=== PATIENT | male | born 1955 | race Caucasian/White ===

== ENCOUNTER 2019-04-27 10:09 | Inpatient (IN) ==
[2019-04-27] MEDS ORDERED: SODIUM CHLORIDE 0.9% 1000ML 1,000 ML IV SCH (11:00)
[2019-04-27 11:02] LABS: Basophils # (auto) 0.02 K/uL (0-0.2); Basophils % (auto) 0.2 %; Eosinophils # (auto) 0.01 K/uL (0-0.5); Eosinophils % (auto) 0.1 %; Hematocrit (blood only) 41.1 % (42-52); Hemoglobin 14.2 g/dL (14.0-18.0); Immature Granulocytes # (auto) 0.02 K/uL (0.00-0.02); Immature Granulocytes % (auto) 0.2 %; Lymphocytes # (auto) 1.35 K/uL (1.2-3.4); Mean Corpuscular Hgb Conc 34.5 g/dL (32-36); Mean Corpuscular Volume 91.3 fL (80-100); Mean Platelet Volume 9.9 fL (7.4-10.4); Monocytes # (auto) 0.76 K/uL (0.11-0.59); Monocytes % (auto) 7.9 %; Neutrophils # (auto) 7.47 K/uL (1.4-6.5); Neutrophils % (auto) 77.6 %; Platelet Count 290 K/uL (130-400); RDW Coefficient of Variation 13.6 % (11.5-14.5); RDW Standard Deviation 45.2 fL (36.4-46.3); White Blood Count 9.63 K/uL (4.8-10.8)
--- NOTE | 2019-04-27 11:16 | XRay Report ---
XR chest 1V portable CLINICAL HISTORY: epigastric pain pain. Nausea. COMPARISON STUDY: No previous studies for comparison. FINDINGS: The bones soft tissues and hemidiaphragms are normal. The cardiomediastinal silhouette is n ormal. The lungs are clear. The pulmonary vasculature is normal. IMPRESSION: Negative chest. The above report was generated using voice recognition software. It may contain grammatical, syntax or spelling errors. Electronically signed by: Cachorro Lentz M.D. 04/27/2019 11:15 AM
[2019-04-27 11:28] LABS: Alanine Aminotransferase 99 U/L (12-78); Albumin Level 3.7 gm/dl (3.4-5.0); Aspartate Aminotransferase 67 U/L (15-37); BUN Creatinine Ratio 10.7 (10-20); Blood Urea Nitrogen 10 mg/dl (7-18); Calcium 9.4 mg/dl (8.5-10.1); Carbon Dioxide 25 mmol/L (21-32); Chloride 102 mmol/L (98-107); Est GFR (African American) 95.8; Est GFR (Non-African American) 82.6; Glucose 105 mg/dl (70-99); Potassium 3.4 mmol/L (3.5-5.1); Sodium 137 mmol/L (136-145)
[2019-04-27 11:32] LABS: Albumin Globulin Ratio 0.8 (0.9-2); Alkaline Phosphatase 332 U/L (45-117); Globulin 4.8 gm/dl (2.5-4.0); Total Protein 8.5 gm/dl (6.4-8.2)
[2019-04-27] MEDS ORDERED: KETOROLAC 30 MG/ML VIAL IV ONE (11:56)
[2019-04-27] MEDS ORDERED: ONDANSETRON INJ 2 MG/ML 2 ML VIAL IV STA (11:56)
[2019-04-27] MEDS ORDERED: IOVERSOL 100ml IV PRN (12:33)
--- NOTE | 2019-04-27 12:42 | CT Scan Report ---
CT abd pelvis IV con only CT DOSE: 466.70 mGy.cm HISTORY: Pain. Nausea. elevated lipase, LFTS-Eval for GB/pancreas dx TECHNIQUE: Multiaxial CT images of the abdomen and pelvis were performed following the use of intrave nous contrast. A dose lowering technique was utilized adhering to the principles of ALARA. COMPARISON STUDY: None. FINDINGS: Lung bases are clear. Prominent biliary ductal system. Distal common bile duct measures up to 1.4 cm. Radiopaque material within the distal common duct suggest choledocholithiasis. Gallbladder soft tissues not appear distended. Spleen is uniform. No distention of the pancreatic caroline t. Potential trace peripancreatic infiltrative change of the pancreatic tail. No evidence for abscess or collection. Kidneys negative for hydronephrosis. 3.8 cm right renal cyst. IMPRESSION: 1. Distended biliary ductal system with findings of distal common bile duct choledocholithiasis. 2. 3.8 cm right renal cyst. 3. Study is otherwise suggestive of potential minimal pancreatic tail pancreatitis. The above report was generated using voice recognition software. It may contain grammatical, syntax or spelling errors. Electronically signed by: Cachorro Lentz M.D. 04/27/2019 12:41 PM
[2019-04-27] MEDS ORDERED: PIPERACILLIN/TAZOBACTAM 4.5 GM/120 ML BAG IV STA (12:52)
[2019-04-27 13:25] LABS: Appearance Urine Clear (Clear); Blood Urine Negative (Negative); Color Urine Dark Yellow; Glucose Urine UA Negative (Negative); Ketones Urine Negative (Negative); Leukocyte Esterase Urine Negative (Negative); Nitrite Urine Negative (Negative); Protein Urine Negative (Negative); Specific Gravity Urine 1.043 (1.000-1.030); Urobilinogen Urine Negative (Negative)
[2019-04-27 13:34] LABS: Bilirubin Urine 3+ (Negative)
[2019-04-27 13:35] LABS: Ictotest Urine Positive (Negative)
--- NOTE | 2019-04-27 13:39 | History & Physical Report ---
Date of Service April 27, 2019 Assessment & Plan (1) Acute gallstone pancreatitis: N.p.o. IV fluids. Parenteral narcotics and antiemetics. GI consultation Present on Admission?: Yes (2) Obstructive jaundice: Due to distal choledocholithiasis. N.p.o. IV Zosyn. GI consultation Present on Admission?: Yes (3) Hypokalemia: IV replacement. Serial labs Present on Admission?: Yes (4) Hepatitis C: Necessary precautions (5) Hypertension: Treated with lisinopril (6) Hyperlipidemia: Hold statin therapy (7) DVT prophylaxis: Lovenox subcu History of Present Illness Chief Complaint: Epigastric discomfort, nausea and vomiting Primary Care Provider: SHELBY Vieira 64-year-old male with 4 to 5 days of epigastric discomfort nausea and vomiting and development of jaundice. His symptoms have steadily grown worse and he was brought to the ED from the custodial center. He is found to have acute gallstone pancreatitis with distal choledocholithiasis causing some obstructive jaundice. Total bilirubin is 8.0. Lipase 14,899. Potassium 3.4. GI consultation has already been requested. He is admitted for further evaluation and treatment. No hematemesis melena or hematochezia. No fever. Allergies Allergy/AdvReac Type Severity Reaction Status Date / Time No Known Allergies Allergy Unverified 04/27/19 12:14 Home Medications Home Medications Medication Instructions Recorded Confirmed Type aspirin 81 mg PO HS 04/27/19 04/27/19 History duloxetine 30 mg PO HS 04/27/19 04/27/19 History ibuprofen 600 mg PO TID 04/27/19 04/27/19 History lisinopril 20 mg PO HS 04/27/19 04/27/19 History lovastatin 20 mg PO HS 04/27/19 04/27/19 History magnesium hydroxide [Milk of 30 ml PO QPM PRN 04/27/19 04/27/19 History Magnesia] mirtazapine 15 mg PO HS 04/27/19 04/27/19 History omeprazole 20 mg PO QAM 04/27/19 04/27/19 History promethazine 25 mg IM Q6H PRN 04/27/19 04/27/19 History Past Med/Surg History Medical History Hepatitis C (Resolved) Family History Other Family history non-contributory Social History Current Living Situation: Other Current Living Situation Comment: Incarcerated Feels Safe at Home: Yes Smoking Status: Former smoker Hx Alcohol Use: No Hx Substance Use: Yes (Former (2003)) substance use type: IV drugs Review of Systems Review of Systems: Constitutional-no fever or chills ENT-no blurred vision, no double vision, no epistaxis, no sore throat Respiratory-no cough, no wheezing, no shortness of breath Cardiac-no palpitations, no chest pain, no syncope GI-epigastric discomfort. Nausea. Vomiting. No hematemesis. No coffee-ground emesis -no urinary retention, no urinary incontinence, no dysuria, no hematuria Musculoskeletal-no joint pain, no muscle tenderness Skin-no bruising, no rashes, no pruritus Neuro-no isolated weakness, no paresthesia, no weakness Psych-no depression, no anxiety Physical Exam 2 Physical Exam: General-alert and oriented x3, no fevers, no chills HEENT-head atraumatic and normocephalic, TMs intact bilaterally, pupils equal and reactive to light, extraocular muscles intact. Mild icterus noted Neck-no lymphadenopathy or thyromegaly, trachea midline Chest-clear to auscultation percussion. No rales wheezing or rhonchi Cardiac-regular rate and rhythm, normal S1 and S2, no murmurs Abdomen-epigastric tenderness. No masses. No rebound or guarding. Bowel sounds are active Extremities-no cyanosis, clubbing, or edema Neuro-cranial nerves II through XII intact, motor and sensory function within normal limits, strength symmetrical 5/5, no focal deficits Psych-normal affect, normal mood Results & Data Vital Signs (Past 12 Hours) Vital Signs Temp Pulse Pulse Resp BP BP Pulse Ox 04/27/19 13:00 58 L 20 184/93 H 96 04/27/19 10:21 36.7 C 70 20 176/99 H 97 Laboratory Results 04/27/19 10:47 04/27/19 10:47 PG Care Time/CCT Total # of Minutes Spent Total Time Spent with Patient: Total time spent is greater than 50% in coordination of care (as documented) at patient's floor/unit and/or counseling patient:
--- NOTE | 2019-04-27 13:55 | Gastrointestinal Consultation ---
Date of Consultation April 27, 2019 Assessment & Plan (1) Choledocholithiasis: ERCP tomorrow for stone extraction. Antibiotics have been started. Will need surgical consult for cholecystectomy, once pancreatitis improves. IV fluids, pain control, anti-emetics. Would keep NPO. Follow labs. (2) Acute gallstone pancreatitis: as above Supervising Physician Co-Signing Physician Notes I have seen and examined the patietn with Carmen Cisneros PA-C whose note reflects our findings and plan. Inmate admitted with abd pain. History and presentation as well as labs and imaging consistent with choledocholithiasis and gallstone pancreatitis. abd tender. No fevers. - Bowel rest - IVF hydration - PRN analgesia and anti-emetics. - ERCP planned for tomorrow for stone extraction. - Will need surgical eval for tyree once he recovers from the acute episode. History of Present Illness Reason for Consultation: Obstructive jaundice with pancreatitis Requesting Physician: Dr Jacob Attending Physician: Dr. Renuka Haskins History of Present Illness 64 year old male with a hx of HTN, hyperlipidemia and Hep C s/p successful treatment, currently an inmate at [facility] participating in a local "boot camp." He reports significant epigastric/LUQ abdominal pain, radiating to the back, with associated n/v, worse post prandially since Saturday of last week. He reports a low grade fever with chills and pruritus as well. He has noted darker urine and young colored stool for the past several days, and mild jaundice. Brought to the ED and found to have a Tbili of 8.0, ALP of 332, AST of 67 and ALT of 99. WBC was normal. Lipase 14,899. CTAP was performed, which showed biliary ductal dilation and a retained stone in the distal CBD. Mild pancreatitis of the pancreatic tail was noted as well. Currently afebrile. NPO. On no blood thinners. Does take 81mg ASA daily. Intermittent Ibuprofen use. Allergies Allergy/AdvReac Type Severity Reaction Status Date / Time No Known Allergies Allergy Unverified 04/27/19 12:14 Home Medications Home Medications Medication Instructions Recorded Confirmed Type aspirin 81 mg PO HS 04/27/19 04/27/19 History duloxetine 30 mg PO HS 04/27/19 04/27/19 History ibuprofen 600 mg PO TID 04/27/19 04/27/19 History lisinopril 20 mg PO HS 04/27/19 04/27/19 History lovastatin 20 mg PO HS 04/27/19 04/27/19 History magnesium hydroxide [Milk of 30 ml PO QPM PRN 04/27/19 04/27/19 History Magnesia] mirtazapine 15 mg PO HS 04/27/19 04/27/19 History omeprazole 20 mg PO QAM 04/27/19 04/27/19 History promethazine 25 mg IM Q6H PRN 04/27/19 04/27/19 History Patient History Medical History Hyperlipidemia (Chronic) Hypertension (Chronic) Hypokalemia (Acute) Obstructive jaundice (Acute) Acute gallstone pancreatitis (Acute) Hepatitis C (Resolved) Family History Other Family history non-contributory Social History Current Living Situation: Other Current Living Situation Comment: Incarcerated Feels Safe at Home: Yes Smoking Status: Former smoker Hx Alcohol Use: No Hx Substance Use: Yes (Former (2003)) substance use type: IV drugs Review of Systems Constitutional: + fever (initially) and + chills (initially); no fatigue and no weight loss Eyes: no eye pain and no worsening vision Ear, Nose, Mouth, Throat: no ear pain, no hearing loss, no nasal congestion and no sore throat Respiratory: no cough, no chest congestion and no wheezing Cardiovascular: no chest pain and no dyspnea Gastrointestinal: as per Subjective / HPI Musculoskeletal: no joint pain Integumentary: + pruritus; no rash Neurologic: no tingling, no numbness and no dizziness Psychiatric: no suicidal ideation and no confusion Endocrine: no cold intolerance and no heat intolerance Hematologic / Lymphatic: no easy bleeding and no easy bruising Allergy / Immunological: no problem reported Physical Exam Constitutional: WD/WN, vitals as above healthy appearing; no acute distress Eyes: +icterus ENMT: external ear and nose normal, oropharynx normal Neck: normal visual inspection Respiratory: normal respiratory effort, lungs clear to auscultation Cardiovascular: Rate/Rhythm: regular rate and regular rhythm Heart Sounds: no murmur Gastrointestinal (Abdomen): Inspection/Auscultation: normal bowel sounds Percussion/Palpation: + abdomen tender (across the upper abdomen) and abdomen soft; no ascites Musculoskeletal: Head/Neck/Chest: normocephalic and head atraumatic Skin: + jaundice (mild) Neurologic: moves all extremities; no focal motor deficits Psychiatric: Orientation: alert and oriented x 3 Results & Data Vital Signs (Past 12 Hours) Vital Signs Temp Pulse Pulse Resp BP BP Pulse Ox 04/27/19 13:00 58 L 20 184/93 H 96 04/27/19 10:21 36.7 C 70 20 176/99 H 97 Laboratory Results - last 24 hr 04/27/19 04/27/19 04/27/19 10:47 10:47 13:15 WBC 9.63 RBC 4.50 L Hgb 14.2 Hct 41.1 L MCV 91.3 MCH 31.6 MCHC 34.5 RDW Std Deviation 45.2 RDW Coeff of Jonas 13.6 Plt Count 290 MPV 9.9 Immature Gran % (Auto) 0.2 Neut % (Auto) 77.6 Lymph % (Auto) 14.0 [place] % (Auto) 7.9 Eos % (Auto) 0.1 Baso % (Auto) 0.2 Immature Gran # (Auto) 0.02 Neut # (Auto) 7.47 H Lymph # (Auto) 1.35 [place] # (Auto) 0.76 H Eos # (Auto) 0.01 Baso # (Auto) 0.02 Sodium 137 Potassium 3.4 L Chloride 102 Carbon Dioxide 25 Anion Gap 10.0 BUN 10 Creatinine 0.96 Est Cr Clr Drug Dosing Not Reportable Est GFR ( Amer) 95.8 Est GFR (Non-Af Amer) 82.6 BUN/Creatinine Ratio 10.7 Glucose 105 H Calcium 9.4 Total Bilirubin 8.0 H AST 67 H ALT 99 H Alkaline Phosphatase 332 H Total Protein 8.5 H Albumin 3.7 Globulin 4.8 H Albumin/Globulin Ratio 0.8 L Lipase 67827 H Urine Color Dark Yellow Urine Appearance Clear Urine pH 6.0 Ur Specific [place] 1.043 H Urine Protein Negative Urine Glucose (UA) Negative Urine Ketones Negative Urine Blood Negative Urine Nitrite Negative Urine Bilirubin 3+ H Urine Urobilinogen Negative Ur Leukocyte Esterase Negative CTAP -= IV contrast: IMPRESSION: 1. Distended biliary ductal system with findings of distal common bile duct choledocholithiasis. 2. 3.8 cm right renal cyst. 3. Study is otherwise suggestive of potential minimal pancreatic tail pancreatitis.
[2019-04-27 15:57] LABS: Prothrombin Time 10.5 Seconds (9.0-12.0)
--- NOTE | 2019-04-27 16:18 | Anesthesiology Consultation ---
Date of Service April 27, 2019 Assessment & Plan (1) Encounter for pre-operative examination: Chart Review Chart Review: Acceptable Risk for Surgery and Patient NOT seen in Pre Admission Testing Consults Requested none medicine is following History Surgery Operation Date: 04/28/19 14:00 Proposed Procedures p Endoscopic Retrograde Cholangiopancreatogram - Castro Love MD Height/Weight Weight: 90.4 kg Allergies Allergy/AdvReac Type Severity Reaction Status Date / Time No Known Allergies Allergy Unverified 04/27/19 12:14 Medications Home Medications Medication Instructions Recorded Confirmed Last Taken aspirin 81 mg PO HS 04/27/19 04/27/19 Unknown duloxetine 30 mg PO HS 04/27/19 04/27/19 04/26/19 ibuprofen 600 mg PO TID 04/27/19 04/27/19 Unknown lisinopril 20 mg PO HS 04/27/19 04/27/19 Unknown lovastatin 20 mg PO HS 04/27/19 04/27/19 Unknown magnesium hydroxide [Milk of 30 ml PO QPM PRN 04/27/19 04/27/19 04/26/19 Magnesia] mirtazapine 15 mg PO HS 04/27/19 04/27/19 04/25/19 omeprazole 20 mg PO QAM 04/27/19 04/27/19 Unknown promethazine 25 mg IM Q6H PRN 04/27/19 04/27/19 Unknown Active Medications Generic Name Dose Route Start Last Admin Trade Name Freq PRN Reason Stop Dose Admin Ioversol 94 ml 04/27/19 12:33 04/27/19 12:33 Optiray 320 100ml IV 05/01/19 12:32 94 ml ONCE PRN Administration Interaction Checking Past Medical History Medical History Hyperlipidemia (Chronic) Hypertension (Chronic) Hypokalemia (Acute) Obstructive jaundice (Acute) Acute gallstone pancreatitis (Acute) Hepatitis C (Resolved) Past Family History Family History Other Family history non-contributory Social History Smoking Status: Former smoker Hx Alcohol Use: No Hx Substance Use: Yes (Former (2003)) substance use type: IV drugs Physical Exam Vital Signs Last Vital Signs Temp 36.7 C 04/27/19 10:21 Pulse 58 L 07/29/19 13:00 Resp 23 04/27/19 16:01 BP 211/113 H 04/27/19 16:01 Pulse Ox 96 04/27/19 16:01 Testing Laboratory Results 04/27/19 10:47 04/27/19 10:47 PT 10.5 Seconds (9.0-12.0) 04/27/19 15:38 INR 1.0 (0.9-1.1) 04/27/19 15:38 Urine Color Dark Yellow 04/27/19 13:15 Urine Appearance Clear (Clear) 04/27/19 13:15 Urine pH 6.0 (4.5-7.5) 04/27/19 13:15 Ur Specific [place] 1.043 (1.000-1.030) H 04/27/19 13:15 Urine Protein Negative (Negative) 04/27/19 13:15 Urine Glucose (UA) Negative (Negative) 04/27/19 13:15 Urine Ketones Negative (Negative) 04/27/19 13:15 Urine Nitrite Negative (Negative) 04/27/19 13:15 Ur Leukocyte Esterase Negative (Negative) 04/27/19 13:15 Electrocardiogram Date: 04/27/19 ectopic atrial vs junctional rhythm rate of 59 Chest X-Ray Date: 04/27/19 XR chest 1V portable CLINICAL HISTORY: epigastric pain pain. Nausea. COMPARISON STUDY: No previous studies for comparison. FINDINGS: The bones soft tissues and hemidiaphragms are normal. The cardiomediastinal silhouette is normal. The lungs are clear. The pulmonary vasculature is normal. IMPRESSION: Negative chest. The above report was generated using voice recognition software. It may contain grammatical, syntax or spelling errors. Electronically signed by: Cachorro Lentz M.D. 04/27/2019 11:15 AM Dictated: 04/27/19 1115 Transcribed: 04/27/19 1115
--- NOTE | 2019-04-27 16:36 | Emergency Department Note ---
Entered by Renuka Cabello acting as a scribe for History of Present Illness General Chief complaint: Abdominal Pain Stated complaint: ABD PAIN, FATIGUE Time Seen by Provider: 04/27/19 10:49 Source: patient History of Present Illness Onset (ago): day(s) 5 Location: abdomen Pain Consistency: + other (persistent) Maximum Pain Intensity: 5 Exacerbated By: + eating Associated symptoms: + denies other symptoms (chest pain, shortness of breath, hematemesis) and + other (vomiting, fever, yellow eyes) The patient is a 64 year old male that is presenting to the Emergency Room with complaints of intermittent abdominal pain that started 5 days ago while the patient was eating. The patient reports that he started vomiting shortly after the onset of the pain. He states that the pain resolved that evening and notes that he did not eat the rest of the day. He states that the same symptoms returned with eating the next day. He reports that he is unable to keep any food down secondary to the pain and vomiting. He denies any hematemesis. He notes that he had a fever. He states that he was informed by the physician at his facility that his eyes were yellow. He denies any chest pain or shortness of breath. He denies any current alcohol or drug use. 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 He denies any excessive exposure to the sun. He reports that he has been incarcerated for the past 21 months. The patient reports that he has a history of hepatitis c that has resolved with treatment. He notes that he had his esophagus stretched in 2016. Home Medications Home Medications Medication Instructions Recorded Confirmed Type aspirin 81 mg PO HS 04/27/19 04/27/19 History duloxetine 30 mg PO HS 04/27/19 04/27/19 History ibuprofen 600 mg PO TID 04/27/19 04/27/19 History lisinopril 20 mg PO HS 04/27/19 04/27/19 History lovastatin 20 mg PO HS 04/27/19 04/27/19 History magnesium hydroxide [Milk of 30 ml PO QPM PRN 04/27/19 04/27/19 History Magnesia] mirtazapine 15 mg PO HS 04/27/19 04/27/19 History omeprazole 20 mg PO QAM 04/27/19 04/27/19 History promethazine 25 mg IM Q6H PRN 04/27/19 04/27/19 History Allergies Allergy/AdvReac Type Severity Reaction Status Date / Time No Known Allergies Allergy Unverified 04/27/19 12:14 Past Med/Surg History Medical History Hyperlipidemia (Chronic) Hypertension (Chronic) Hypokalemia (Acute) Obstructive jaundice (Acute) Acute gallstone pancreatitis (Acute) Hepatitis C (Resolved) Family History Other Family history non-contributory Social History Current Living Situation: Other Current Living Situation Comment: Incarcerated Feels Safe at Home: Yes Smoking Status: Former smoker Hx Alcohol Use: No Hx Substance Use: Yes (Former (2003)) substance use type: IV drugs Review of Systems See HPI for pertinent positives & negatives. and A total of 10 systems reviewed and were otherwise negative Physical Exam Vital Signs Vital Signs - 24 hr 04/27/19 10:21 04/27/19 10:56 04/27/19 13:00 Temperature 36.7 C Temperature Source Oral Sepsis Recent Fever Within 48 Hours No Sepsis Action Taken by Nursing No Action Required Pulse Rate 70 Pulse Rate [Left] 58 L Pulse Rate from SpO2 Sensor Respiratory Rate 20 20 Respiratory Effort / Characteristics Non-Labored Respiratory Depth Normal Blood Pressure 176/99 H Blood Pressure [Right Arm] 184/93 H Blood Pressure Mean 124 Blood Pressure Mean [Right Arm] 123 Pulse Oximetry 97 96 Oxygen Delivery Method Room Air Room Air Room Air 04/27/19 15:09 04/27/19 16:01 Temperature Temperature Source Sepsis Recent Fever Within 48 Hours Sepsis Action Taken by Nursing Pulse Rate Pulse Rate [Left] Pulse Rate from SpO2 Sensor 64 63 Respiratory Rate 24 23 Respiratory Effort / Characteristics Respiratory Depth Blood Pressure 202/91 H 211/113 H Blood Pressure [Right Arm] Blood Pressure Mean 128 145 Blood Pressure Mean [Right Arm] Pulse Oximetry 96 96 Oxygen Delivery Method Room Air Room Air General: Non-ill appearing middle-aged male in no acute distress. HEENT: Normal cephalic atraumatic. Pupils are equal round and reactive to light. Extraocular movements are intact. Oropharynx is pink with moist mucous membranes. No swelling of the mouth lips or tongue. Sclera have icterus. Neck: Supple with a midline trachea. No meningeal signs or stiffness, no JVD or bruits. No Stridor. Chest: Clear to auscultation bilaterally. No wheezes or rhonchi. No increased work of breathing. Heart: regular rate and rhythm. Abdomen: Soft, nondistended without rebound guarding or rigidity. Mildly tender in the epigastric and right upper quadrant. Extremities: No cyanosis clubbing or edema. No calf tenderness or asymmetry Spine/Back. Non tender to palpation. No CVA tenderness Skin: Good turgor without rashes. Neurologic exam: Cranial nerves two through 12 are intact. Motor and sensation are intact and symmetrical throughout. Course 1049:The patient was evaluated in room C11B. A complete history and physical examination was performed. 1256: I discussed the patients case with the PORTFOLIO ADMINISTRATOR for GI, who will evaluate the patient for further management and care. 1306: I discussed the patients case with JACKELINE Wilks, who will evaluate the patient further. 1310: Upon reevaluation, the patient is resting comfortably. I discussed laboratory and radiographic results with the patient. He verbalized agreement of the treatment plan. The patient will be evaluated for further management and care. Consultations Consultation #1: I discussed the patients case with the PORTFOLIO ADMINISTRATOR for GI, who will evaluate the patient for further management and care. Time: 12:56 Consultation #2: I discussed the patients case with JACKELINE Wilks, who will evaluate the patient further. Time: 13:06 Administered Medications Ioversol (Optiray 320 100ml) 94 ml IV ONCE PRN PRN Reason: Interaction Checking Stop: 05/01/19 12:32 Last Admin: 04/27/19 12:33 Dose: 94 ml Documented by: [id number] Discontinued Medications Sodium Chloride (Nss 1000ml) 1,000 mls @ 999 mls/hr IV .Q1H1M CRYSTAL Stop: 04/27/19 12:00 Last Infusion: 04/27/19 12:42 Dose: 0 mls/hr Documented by: [id number] Admin: 04/27/19 11:19 Dose: 999 mls/hr Documented by: [id number] Piperacillin Sod/Tazobactam Sod (Zosyn) 4.5 gm in 120 mls @ 240 mls/hr IV NOW STA Stop: 04/27/19 13:21 Last Infusion: 04/27/19 13:56 Dose: 0 mls/hr Documented by: [id number] Admin: 04/27/19 13:13 Dose: 240 mls/hr Documented by: [id number] Ketorolac Tromethamine (Toradol) 30 mg IV NOW ONE Stop: 04/27/19 11:57 Last Admin: 04/27/19 12:47 Dose: 30 mg Documented by: [id number] Ondansetron HCl (Zofran) 4 mg IV NOW STA Stop: 04/27/19 11:57 Last Admin: 04/27/19 12:47 Dose: 4 mg Documented by: [id number] Medical Decision Making Differential Diagnosis Differential diagnosis: Etiologies such as liver disease, gall bladder disease, dehydration, peptic ulcer disease, esophageal pathologies, electrolyte and metabolic abnormalities as well as others were entertained. Medical Records Attestation: I reviewed the patient's medical records. Home Medications Current Medication List: was personally reviewed by me Laboratory Data Attestation: I reviewed the patient's lab results. Result diagrams: 04/27/19 10:47 04/27/19 10:47 Lab Results 04/27/19 04/27/19 04/27/19 Range/Units 10:47 10:47 10:47 WBC 9.63 (4.8-10.8) K/uL RBC 4.50 L (4.7-6.1) M/uL Hgb 14.2 (14.0-18.0) g/dL Hct 41.1 L (42-52) % MCV 91.3 (80-100) fL MCH 31.6 (25-34) pg MCHC 34.5 (32-36) g/dL RDW Std Deviation 45.2 (36.4-46.3) fL RDW Coeff of Jonas 13.6 (11.5-14.5) % Plt Count 290 (130-400) K/uL MPV 9.9 (7.4-10.4) fL Immature Gran % (Auto) 0.2 % Neut % (Auto) 77.6 % Lymph % (Auto) 14.0 % [place] % (Auto) 7.9 % Eos % (Auto) 0.1 % Baso % (Auto) 0.2 % Immature Gran # (Auto) 0.02 (0.00-0.02) K/uL Neut # (Auto) 7.47 H (1.4-6.5) K/uL Lymph # (Auto) 1.35 (1.2-3.4) K/uL [place] # (Auto) 0.76 H (0.11-0.59) K/uL Eos # (Auto) 0.01 (0-0.5) K/uL Baso # (Auto) 0.02 (0-0.2) K/uL PT Cancelled INR Cancelled Sodium 137 (136-145) mmol/L Potassium 3.4 L (3.5-5.1) mmol/L Chloride 102 (98-107) mmol/L Carbon Dioxide 25 (21-32) mmol/L Anion Gap 10.0 (3-11) BUN 10 (7-18) mg/dl Creatinine 0.96 (0.6-1.4) mg/dl Est Cr Clr Drug Dosing Not Reportable Est GFR ( Amer) 95.8 Est GFR (Non-Af Amer) 82.6 BUN/Creatinine Ratio 10.7 (10-20) Glucose 105 H (70-99) mg/dl Calcium 9.4 (8.5-10.1) mg/dl Total Bilirubin 8.0 H (0.2-1) mg/dl AST 67 H (15-37) U/L ALT 99 H (12-78) U/L Alkaline Phosphatase 332 H (45-117) U/L Total Protein 8.5 H (6.4-8.2) gm/dl Albumin 3.7 (3.4-5.0) gm/dl Globulin 4.8 H (2.5-4.0) gm/dl Albumin/Globulin Ratio 0.8 L (0.9-2) Lipase 28886 H (73-393) U/L Urine Color Urine Appearance (Clear) Urine pH (4.5-7.5) Ur Specific [place] (1.000-1.030) Urine Protein (Negative) Urine Glucose (UA) (Negative) Urine Ketones (Negative) Urine Blood (Negative) Urine Nitrite (Negative) Urine Bilirubin (Negative) Urine Urobilinogen (Negative) Ur Leukocyte Esterase (Negative) 04/27/19 04/27/19 Range/Units 13:15 15:38 WBC (4.8-10.8) K/uL RBC (4.7-6.1) M/uL Hgb (14.0-18.0) g/dL Hct (42-52) % MCV (80-100) fL MCH (25-34) pg MCHC (32-36) g/dL RDW Std Deviation (36.4-46.3) fL RDW Coeff of Jonas (11.5-14.5) % Plt Count (130-400) K/uL MPV (7.4-10.4) fL Immature Gran % (Auto) % Neut % (Auto) % Lymph % (Auto) % [place] % (Auto) % Eos % (Auto) % Baso % (Auto) % Immature Gran # (Auto) (0.00-0.02) K/uL Neut # (Auto) (1.4-6.5) K/uL Lymph # (Auto) (1.2-3.4) K/uL [place] # (Auto) (0.11-0.59) K/uL Eos # (Auto) (0-0.5) K/uL Baso # (Auto) (0-0.2) K/uL PT 10.5 INR 1.0 Sodium (136-145) mmol/L Potassium (3.5-5.1) mmol/L Chloride (98-107) mmol/L Carbon Dioxide (21-32) mmol/L Anion Gap (3-11) BUN (7-18) mg/dl Creatinine (0.6-1.4) mg/dl Est Cr Clr Drug Dosing Est GFR ( Amer) Est GFR (Non-Af Amer) BUN/Creatinine Ratio (10-20) Glucose (70-99) mg/dl Calcium (8.5-10.1) mg/dl Total Bilirubin (0.2-1) mg/dl AST (15-37) U/L ALT (12-78) U/L Alkaline Phosphatase (45-117) U/L Total Protein (6.4-8.2) gm/dl Albumin (3.4-5.0) gm/dl Globulin (2.5-4.0) gm/dl Albumin/Globulin Ratio (0.9-2) Lipase (73-393) U/L Urine Color Dark Yellow Urine Appearance Clear (Clear) Urine pH 6.0 (4.5-7.5) Ur Specific [place] 1.043 H (1.000-1.030) Urine Protein Negative (Negative) Urine Glucose (UA) Negative (Negative) Urine Ketones Negative (Negative) Urine Blood Negative (Negative) Urine Nitrite Negative (Negative) Urine Bilirubin 3+ H (Negative) Urine Urobilinogen Negative (Negative) Ur Leukocyte Esterase Negative (Negative) Imaging Data Radiologist's Impression: Radiology results as stated below per my review and the radiologist's interpretation: XR chest 1V portable CLINICAL HISTORY: epigastric pain pain. Nausea. COMPARISON STUDY: No previous studies for comparison. FINDINGS: The bones soft tissues and hemidiaphragms are normal. The cardiomediastinal silhouette is normal. The lungs are clear. The pulmonary vasculature is normal. IMPRESSION: Negative chest. The above report was generated using voice recognition software. It may contain grammatical, syntax or spelling errors. Electronically signed by: Cachorro Lentz M.D. 04/27/2019 11:[address] abd pelvis IV con only CT DOSE: 466.70 mGy.cm HISTORY: Pain. Nausea. elevated lipase, LFTS-Eval for GB/pancreas dx TECHNIQUE: Multiaxial CT images of the abdomen and pelvis were performed following the use of intravenous contrast. A dose lowering technique was utilized adhering to the principles of ALARA. COMPARISON STUDY: None. FINDINGS: Lung bases are clear. Prominent biliary ductal system. Distal common bile duct measures up to 1.4 cm. Radiopaque material within the distal common duct suggest choledocholithiasis. Gallbladder soft tissues not appear distended. Spleen is uniform. No distention of the pancreatic duct. Potential trace peripancreatic infiltrative change of the pancreatic tail. No evidence for abscess or collection. Kidneys negative for hydronephrosis. 3.8 cm right renal cyst. IMPRESSION: 1. Distended biliary ductal system with findings of distal common bile duct choledocholithiasis. 2. 3.8 cm right renal cyst. 3. Study is otherwise suggestive of potential minimal pancreatic tail pancreatitis. The above report was generated using voice recognition software. It may contain grammatical, syntax or spelling errors. Electronically signed by: Cachorro Lentz M.D. 04/27/2019 12:41 PM ECG Data Attestation: I personally reviewed and interpreted this ECG as follows: Indication: abdominal pain Rate (beats per minute): 59 Rhythm: sinus bradycardia Findings: + other (unusual p-wave axis); no PAC, no PVC, no ST depression, no ST elevation, no acute ischemic change and no ectopy Comparison ECG Date: no prior available Blood Pressure Blood Pressure Findings: Elevated blood pressure Blood Pressure Disposition: Referred to patients primary care provider [facility] Narrative This patient comes in as described above. He was placed in room C 11. He was sent in after having nausea vomiting epigastric pain and he was also was noted to be jaundiced. IV access was established and blood work was obtained. EKG does not suggest acute coronary syndrome or arrhythmia. His bilirubin was elevated 8 with his transaminases also moderately elevated. He does have a history of hepatitis C but apparently was treated. He is currently incarcerated and has had no recent alcohol or drug use he tells me. His lipase came back significantly elevated at over 15,000. Clinically he does have pancreatitis. He did do a CAT scan with IV contrast and it shows pancreatitis in the tail but also ductal dilatation with choledocholithiasis. He was given IV antibiotics with Zosyn 4.5 g IV. I did discuss the case with the on-call GI specialist from [facility] they will see him and he will likely need an ERCP. I have also discussed case with Dr. Jacob who will be admitting him for further inpatient treatment and evaluation. Impression & Plan Gall stone pancreatitis, Choledocholithiasis, Abdominal pain, Vomiting, Jaundice Discharge Plan Visit Data Chief Complaint: Abdominal Pain Stated Complaint: ABD PAIN, FATIGUE ED Provider: Donald Loya Discharge Problem: Gall stone pancreatitis, Choledocholithiasis, Abdominal pain, Vomiting, Jaundice Patient Disposition: Being Evaluated by Hospitalist Forms Stand Alone Forms: Call Back Authorization, [facility] Prescriptions Prescriptions: No Action lisinopril 20 mg Tablet 20 mg PO HS RF: 0 aspirin 81 mg Tablet,Delayed Release (Dr/Ec) 81 mg PO HS RF: 0 magnesium hydroxide [Milk of Magnesia] 400 mg/5 mL Suspension 30 ml PO QPM PRN (Reason: Constipation) RF: 0 promethazine 25 mg/mL Solution 25 mg IM Q6H PRN (Reason: Unknown) RF: 0 mirtazapine 15 mg Tablet 15 mg PO HS RF: 0 ibuprofen 600 mg Tablet 600 mg PO TID RF: 0 lovastatin 20 mg Tablet 20 mg PO HS RF: 0 duloxetine 30 mg Capsule,Delayed Release(Dr/Ec) 30 mg PO HS RF: 0 omeprazole 20 mg Tablet,Delayed Release (Dr/Ec) 20 mg PO QAM RF: 0 Referrals Referrals: Dariel RYAN [Primary Care Provider] - The scribe's documentation has been prepared under my direction and personally reviewed by me in its entirety. I confirm that the note above accurately reflects all work, treatment, procedures, and medical decision making performed by me.
[2019-04-27] MEDS ORDERED: ONDANSETRON INJ 2 MG/ML 2 ML VIAL ONE (17:56)
[2019-04-27] MEDS ORDERED: MoRPHine SULFATE 2 MG/ML CARP ONE (17:56)
[2019-04-27] MEDS ORDERED: PIPERACILL/TAZOBAC CONSULT ACTIVE PRN (19:32)
[2019-04-27] MEDS ORDERED: PIPERACILLIN/TAZOBACTAM 3.375 GM in DEXTROSE 5% 100 ML IV ONE (20:00)
[2019-04-27] MEDS: FAMOTIDINE 20 MG in SYRINGE 3 ML IV SCH (20:11)
[2019-04-27] MEDS: NSS + 20MEQ KCL 20 MEQ/1,000 ML BAG IV SCH (20:11)
[2019-04-27] MEDS: MIRTAZAPINE TAB 15 MG TAB PO SCH (20:12)
[2019-04-27] MEDS: LISINOPRIL 20 MG TAB PO SCH (20:12)
[2019-04-27] MEDS: MoRPHine SULFATE 2 MG/ML CARP IV PRN (20:12)
[2019-04-27 20:39] LABS: Prothrombin Time 10.6 Seconds (9.0-12.0)
[2019-04-27] MEDS ORDERED: ASPIRIN 81 MG ECTAB PO SCH (21:00)
[2019-04-27] MEDS: ENOXAPARIN INJ 40 MG/0.4 ML SYR SQ SCH (22:40)
[2019-04-27] MEDS: PATIENT'S HEIGHT AND/OR WEIGHT NEEDED SCH ×2 (22:40→22:41)
[2019-04-28] MEDS ORDERED: IBUPROFEN 600 MG TAB PO PRN (01:15)
[2019-04-28] MEDS ORDERED: IBUPROFEN 600 MG TAB PO STA (01:17)
[2019-04-28] MEDS: MoRPHine SULFATE 2 MG/ML CARP IV PRN ×5 (01:28→21:21)
[2019-04-28] MEDS: PIPERACILLIN/TAZOBACTAM 3.375 GM in DEXTROSE 5% 100 ML IV SCH ×3 (01:28→17:48)
[2019-04-28] MEDS: PATIENT'S HEIGHT AND/OR WEIGHT NEEDED SCH (01:36)
[2019-04-28] MEDS: NSS + 20MEQ KCL 20 MEQ/1,000 ML BAG IV SCH ×2 (02:24→08:06)
[2019-04-28] MEDS: ONDANSETRON INJ 2 MG/ML 2 ML VIAL IV PRN (06:08)
[2019-04-28 06:17] LABS: Basophils # (auto) 0.01 K/uL (0-0.2); Basophils % (auto) 0.1 %; Hematocrit (blood only) 37.6 % (42-52); Hemoglobin 13.1 g/dL (14.0-18.0); Immature Granulocytes # (auto) 0.05 K/uL (0.00-0.02); Immature Granulocytes % (auto) 0.4 %; Lymphocytes # (auto) 1.07 K/uL (1.2-3.4); Lymphocytes % (auto) 9.2 %; Mean Corpuscular Hgb Conc 34.8 g/dL (32-36); Mean Corpuscular Volume 93.8 fL (80-100); Mean Platelet Volume 10.2 fL (7.4-10.4); Monocytes # (auto) 0.86 K/uL (0.11-0.59); Monocytes % (auto) 7.4 %; Neutrophils # (auto) 9.59 K/uL (1.4-6.5); Neutrophils % (auto) 82.9 %; Platelet Count 256 K/uL (130-400); RDW Standard Deviation 47.9 fL (36.4-46.3); Red Blood Count 4.01 M/uL (4.7-6.1); White Blood Count 11.58 K/uL (4.8-10.8)
[2019-04-28 06:47] LABS: Albumin Level 2.8 gm/dl (3.4-5.0); BUN Creatinine Ratio 13.2 (10-20); Calcium 8.4 mg/dl (8.5-10.1); Creatinine Clr Calc Pharmacy 90.8 ml/min; Est GFR (Non-African American) 89.7; Potassium 3.8 mmol/L (3.5-5.1)
[2019-04-28 06:48] LABS: Albumin Globulin Ratio 0.7 (0.9-2); Bilirubin,Total 10.2 mg/dl (0.2-1); Total Protein 6.8 gm/dl (6.4-8.2)
[2019-04-28] MEDS: FAMOTIDINE 20 MG in SYRINGE 3 ML IV SCH (08:06)
[2019-04-28] MEDS: PANTOprazole 40 MG TAB PO SCH (09:07)
--- NOTE | 2019-04-28 12:04 | Hospitalist Progress Note ---
Date of Service April 28, 2019 Assessment & Plan (1) Acute gallstone pancreatitis: N.p.o. IV fluids. Parenteral narcotics and antiemetics. GI consultation. Patient will get an ERCP today and stone extraction. Patient will likely need a cholecystectomy once his pancreatitis improves. (2) Obstructive jaundice: Due to distal choledocholithiasis. N.p.o. IV Zosyn. GI consultation As noted above. (3) Hypokalemia: IV replacement. Serial labs (4) Hepatitis C: Necessary precautions (5) Hypertension: Treated with lisinopril (6) Hyperlipidemia: Hold statin therapy (7) DVT prophylaxis: Lovenox subcu Subjective Seen before the procedure. Still having bilateral flank pain as well as burning epigastric pain. Patient reports pain has only mildly improved. Review of Systems Review of Systems: Constitutional-no fever or chills ENT-no blurred vision, no double vision, no epistaxis, no sore throat Respiratory-no cough, no wheezing, no shortness of breath Cardiac-no palpitations, no chest pain, no syncope GI-epigastric discomfort. Nausea. Vomiting. No hematemesis. No coffee-ground emesis -no urinary retention, no urinary incontinence, no dysuria, no hematuria Musculoskeletal-no joint pain, no muscle tenderness Skin-no bruising, no rashes, no pruritus Neuro-no isolated weakness, no paresthesia, no weakness Psych-no depression, no anxiety Physical Exam Physical Exam: General-alert and oriented x3, no fevers, no chills HEENT-head atraumatic and normocephalic, TMs intact bilaterally, pupils equal and reactive to light, extraocular muscles intact. Mild icterus noted Neck-no lymphadenopathy or thyromegaly, trachea midline Chest-clear to auscultation percussion. No rales wheezing or rhonchi Cardiac-regular rate and rhythm, normal S1 and S2, no murmurs Abdomen-epigastric tenderness. No masses. No rebound or guarding. Bowel sounds are active Extremities-no cyanosis, clubbing, or edema Neuro-cranial nerves II through XII intact, motor and sensory function within normal limits, strength symmetrical 5/5, no focal deficits Psych-normal affect, normal mood Results & Data Vital Signs (Past 12 Hours) Vital Signs Temp Pulse Pulse Resp BP Pulse Ox 04/28/19 11:38 37.3 C 82 16 157/80 H 90 04/28/19 07:58 77 04/28/19 07:32 37.2 C 75 16 164/85 H 92 04/28/19 03:47 37.4 C 76 18 150/79 H 92 PG Care Time/CCT Total # of Minutes Spent Total Time Spent with Patient: Total time spent is greater than 50% in coordination of care (as documented) at patient's floor/unit and/or counseling patient:
--- NOTE | 2019-04-28 12:15 | Gastroenterology Progress Note ---
Date of Service April 28, 2019 Assessment & Plan (1) Choledocholithiasis: ERCP today for stone extraction. Will need surgical consult for cholecystectomy, once pancreatitis improves. IV fluids, pain control, anti- emetics. Follow labs. (2) Acute gallstone pancreatitis: as above Supervising Physician Co-Signing Physician Notes I have seen and examined the patient with DEANA Buckley whose note reflects our findings and plan. ERCP planned for this afternoon. TB 10. AP and transaminases trending down. no abd pain this AM. Abd exam is benign. NPO for ERCP at 2PM. Subjective 64 year old male presenting with choledocholithiasis and gs panc. Bilirubin continues to rise but remainder of LFTs and lipase decreasing. To have ERCP this afternoon for stone extraction. Reports ongoing upper abdominal pain and nausea. Temp today is mildly up at 37.3. NPO for procedure. Review of Systems Constitutional: no chills, no fatigue and no weight loss Eyes: no eye pain and no worsening vision Ear, Nose, Mouth, Throat: no ear pain, no hearing loss, no nasal congestion and no sore throat Respiratory: no cough, no chest congestion and no wheezing Cardiovascular: no chest pain and no dyspnea Gastrointestinal: as per Subjective / HPI Musculoskeletal: no joint pain Integumentary: + pruritus; no rash Neurologic: no tingling, no numbness and no dizziness Psychiatric: no suicidal ideation and no confusion Endocrine: no cold intolerance and no heat intolerance Hematologic / Lymphatic: no easy bleeding and no easy bruising Allergy / Immunological: no problem reported Physical Exam Constitutional: WD/WN, vitals as above healthy appearing; no acute distress jaundiced Eyes: + anicteric sclerae ENMT: external ear and nose normal, oropharynx normal Neck: normal visual inspection Respiratory: normal respiratory effort, lungs clear to auscultation Cardiovascular: Rate/Rhythm: regular rate and regular rhythm Heart Sounds: no murmur Gastrointestinal (Abdomen): Inspection/Auscultation: normal bowel sounds Percussion/Palpation: + abdomen tender (diffuse tenderness, worse across upper abdomen) and abdomen soft Musculoskeletal: Head/Neck/Chest: normocephalic and head atraumatic Skin: no rashes, warm and dry Neurologic: moves all extremities; no focal motor deficits Psychiatric: Orientation: alert and oriented x 3 Results & Data Vital Signs (Past 12 Hours) Vital Signs Temp Pulse Pulse Resp BP Pulse Ox 04/28/19 11:38 37.3 C 82 16 157/80 H 90 04/28/19 07:58 77 04/28/19 07:32 37.2 C 75 16 164/85 H 92 04/28/19 03:47 37.4 C 76 18 150/79 H 92 Laboratory Results - last 24 hr 04/27/19 04/27/19 04/27/19 10:47 13:15 15:38 WBC RBC Hgb Hct MCV MCH MCHC RDW Std Deviation RDW Coeff of Jonas Plt Count MPV Immature Gran % (Auto) Neut % (Auto) Lymph % (Auto) [place] % (Auto) Eos % (Auto) Baso % (Auto) Immature Gran # (Auto) Neut # (Auto) Lymph # (Auto) [place] # (Auto) Eos # (Auto) Baso # (Auto) PT Cancelled 10.5 INR Cancelled 1.0 Sodium Potassium Chloride Carbon Dioxide Anion Gap BUN Creatinine Est Cr Clr Drug Dosing Est GFR ( Amer) Est GFR (Non-Af Amer) BUN/Creatinine Ratio Glucose Calcium Total Bilirubin AST ALT Alkaline Phosphatase Total Protein Albumin Globulin Albumin/Globulin Ratio Lipase Urine Color Dark Yellow Urine Appearance Clear Urine pH 6.0 Ur Specific [place] 1.043 H Urine Protein Negative Urine Glucose (UA) Negative Urine Ketones Negative Urine Blood Negative Urine Nitrite Negative Urine Bilirubin 3+ H Urine Urobilinogen Negative Ur Leukocyte Esterase Negative 04/27/19 04/28/19 04/28/19 20:12 05:44 05:44 WBC 11.58 H RBC 4.01 L Hgb 13.1 L Hct 37.6 L MCV 93.8 MCH 32.7 MCHC 34.8 RDW Std Deviation 47.9 H RDW Coeff of Jonas 14.0 Plt Count 256 MPV 10.2 Immature Gran % (Auto) 0.4 Neut % (Auto) 82.9 Lymph % (Auto) 9.2 [place] % (Auto) 7.4 Eos % (Auto) 0.0 Baso % (Auto) 0.1 Immature Gran # (Auto) 0.05 H Neut # (Auto) 9.59 H Lymph # (Auto) 1.07 L [place] # (Auto) 0.86 H Eos # (Auto) 0.00 Baso # (Auto) 0.01 PT 10.6 INR 1.0 Sodium 136 Potassium 3.8 Chloride 104 Carbon Dioxide 26 Anion Gap 6.0 BUN 12 Creatinine 0.89 Est Cr Clr Drug Dosing 90.8 Est GFR ( Amer) 104.0 Est GFR (Non-Af Amer) 89.7 BUN/Creatinine Ratio 13.2 Glucose 80 Calcium 8.4 L Total Bilirubin 10.2 H AST 54 H ALT 76 Alkaline Phosphatase 265 H Total Protein 6.8 Albumin 2.8 L Globulin 4.0 Albumin/Globulin Ratio 0.7 L Lipase 6891 H Urine Color Urine Appearance Urine pH Ur Specific [place] Urine Protein Urine Glucose (UA) Urine Ketones Urine Blood Urine Nitrite Urine Bilirubin Urine Urobilinogen Ur Leukocyte Esterase
[2019-04-28] MEDS ORDERED: GLYCOPYRROLATE 0.2 MG/ML VIAL ONE (13:25)
[2019-04-28] MEDS ORDERED: PROPOFOL IV EMULSION 10 MG/ML 20 ML VIAL IV ONE (13:25)
[2019-04-28] MEDS ORDERED: ONDANSETRON INJ 2 MG/ML 2 ML VIAL ONE (13:25)
[2019-04-28] MEDS ORDERED: NEOSTIGMINE METHYLSULFATE 5 MG/5 ML SYR ONE (13:25)
[2019-04-28] MEDS ORDERED: LIDOCAINE HCL 2% 2 ML VIAL/AMP(20MG/ML) INFIL ONE (13:25)
[2019-04-28] MEDS ORDERED: fentaNYL citrate 100 MCG/2 ML VIAL ONE (13:25)
[2019-04-28] MEDS ORDERED: DEXAMETHASONE SOD INJ 4 MG/ML VIAL ONE (13:25)
[2019-04-28] MEDS ORDERED: MIDAZOLAM HCL 1 MG/ML 2ML VIAL ONE (13:26)
[2019-04-28] MEDS ORDERED: ATROPINE SULFATE 0.1 MG/ML 10ML SYR IV PRN (14:09)
[2019-04-28] MEDS ORDERED: ePHEDrine sulfate 50 MG/ML AMP IV PRN (14:09)
[2019-04-28] MEDS ORDERED: LABETALOL HCL IV 5 MG/ML 20ML IV PRN (14:09)
[2019-04-28] MEDS ORDERED: fentaNYL citrate 100 MCG/2 ML VIAL IV PRN (14:09)
[2019-04-28] MEDS ORDERED: PHENYLEPHRINE 100MCG/ML 5ML SYR IV PRN (14:09)
[2019-04-28] MEDS ORDERED: MEPERIDINE HCL 25 MG/ML CARP IV PRN (14:09)
[2019-04-28] MEDS ORDERED: ONDANSETRON INJ 2 MG/ML 2 ML VIAL IV PRN (14:09)
[2019-04-28] MEDS ORDERED: INDOMETHACIN 50 MG SUPP PR ONE (14:13)
--- NOTE | 2019-04-28 14:23 | History & Physical Bridge Note ---
Date of Service April 28, 2019 History & Physical Bridge Note I have examined the patient, reviewed the History & Physical and in the interval since the performance of the History & Physical I have noted the following changes of clinical significance: no changes noted
--- NOTE | 2019-04-28 15:13 | Operative Report ---
Post Operative Report Pre & Post Diagnosis Operation Date: 04/28/19 14:00 Pre-Op Diagnosis: Acute Gallstone Pancreatitis, Choledocholithiasis Post-Op Diagnosis: Acute Gallstone Pancreatitis, Choledocholithiasis Procedure Operation Date: 04/28/19 14:00 Actual Procedures p Endoscopic Retrograde Cholangiopancreatogram(Not Applicable) - Castro Love MD Surgeon Castro Love MD Induction Heating Equipment Setter None Estimated Blood Loss 0 Findings Consistent with Post-Op Diagnosis Specimens None Description of Procedure See Provation report I attest to the content of the Intraoperative Record and any orders documented therein. Any exceptions are noted below.
[2019-04-28] MEDS ORDERED: ROCURONIUM BROMIDE 10 MG/ML 5 ML VIAL ONE (15:31)
--- NOTE | 2019-04-28 15:56 | Fluoroscopy Report ---
[place] ERCP biliary ductal HISTORY: 64 years-old Male DUCT CHECK acutely elevated lipase and LFTs COMPARISON: CT abdomen and pelvis 04/27/2019 TECHNIQUE: 5 Spot fluoroscopic images of the abdominal right upper quadrant were obtained utilizing 1 minute and 11.7 seconds of fluoroscopy time FINDINGS: Endoscope noted within the duodenum. Cannulation of the common bile duct. Contrast opacification demo nstrates dilation of the common bile duct. Filling defects are suggestive of previously described cho ledocholithiasis. Balloon sweep of the common bile duct is noted. Contrast is noted extending into th e duodenum. IMPRESSION: Fluoroscopic assistance as above. Please see procedural report for further details. The above report was generated using voice recognition software. It may contain grammatical, syntax o r spelling errors. Electronically signed by: Fawad Butler M.D. 04/28/2019 3:54 PM
[2019-04-28] MEDS ORDERED: PROMETHAZINE HCL INJ 25 MG/ML 1 ML VIAL IM PRN (15:57)
[2019-04-28] MEDS ORDERED: MAGNESIUM HYDROXIDE SUSP 30 ML UDC PO PRN (15:57)
--- NOTE | 2019-04-28 16:08 | Anesthesiology Progress Note ---
Date of Service April 28, 2019 Anesthesia Post Procedure Vital Signs Vital Signs: Temp Pulse Pulse Pulse Resp BP BP 04/28/19 16:00 67 16 04/28/19 15:50 36.5 C 68 16 04/28/19 15:40 71 16 04/28/19 15:30 65 16 04/28/19 15:24 36.4 C L 68 16 04/28/19 14:14 37.8 C H 73 22 172/90 H 04/28/19 11:38 37.3 C 82 16 157/80 H 04/28/19 07:58 77 04/28/19 07:32 37.2 C 75 16 164/85 H 04/28/19 03:47 37.4 C 76 18 150/79 H 04/28/19 00:00 38.6 C H 83 20 160/79 H 04/27/19 23:47 77 04/27/19 23:21 67 04/27/19 20:26 37.5 C 74 18 04/27/19 19:59 37.5 C 80 20 04/27/19 18:30 66 20 175/92 H 04/27/19 18:00 20 190/99 H 04/27/19 17:30 20 204/96 H BP Pulse Ox 04/28/19 16:00 132/88 97 04/28/19 15:50 148/80 H 97 04/28/19 15:40 140/78 96 04/28/19 15:30 131/80 100 04/28/19 15:24 124/93 100 04/28/19 14:14 94 04/28/19 11:38 90 04/28/19 07:58 04/28/19 07:32 92 04/28/19 03:47 92 04/28/19 00:00 93 04/27/19 23:47 04/27/19 23:21 04/27/19 20:26 174/85 H 95 04/27/19 19:59 192/119 H 93 04/27/19 18:30 95 04/27/19 18:00 95 04/27/19 17:30 95 Pain Intensity Abdomen: Pain Intensity: 6 Transfer of Care Handoff Completed per policy Notes Mental Status: alert / awake / arousable Patient Amnestic to Procedure: Yes Nausea / Vomiting: adequately controlled Pain: adequately controlled Airway Patency, RR, SpO2: stable & adequate BP & HR: stable & adequate Hydration State: stable & adequate Anesthetic Complications: no major complications apparent and Pt Satisfied with anesthetic care
--- NOTE | 2019-04-28 16:08 | GI REPORT ---
Patient Name: Silvino Escobar Procedure Date: 04/28/2019 2:23 PM Date of : 1955 Admit Type: Inpatient Age: 64 Gender: Male Attending MD: Castro Love MD Procedure: ERCP Providers: Castro Love MD Referring MD: Dariel South Indications: Abdominal pain of suspected biliary origin, For therapy of bile duct stone(s), Acute pancreatitis Medicines: General Anesthesia, Indomethacin 100 mg [place] Complications: No immediate complications. Estimated blood loss: None Estimated Blood Loss: Estimated blood loss: none. Procedure: Pre-Anesthesia Assessment: - Prior to the procedure, a History and Physical was performed, and patient medications, allergies and sensitivities were reviewed. The patient's tolerance of previous anesthesia was reviewed. - ASA Grade Assessment: III - A patient with severe systemic disease. After obtaining informed consent, the scope was passed under direct vision. Throughout the procedure, the patient's blood pressure, pulse, and oxygen saturations were monitored continuously. The SCOPE was introduced through the mouth, and advanced to the duodenum and used to inject contrast into the bile duct. The ERCP was accomplished with ease. The patient tolerated the procedure well. Findings: The electronic gluing machine operator film was normal. The esophagus was successfully intubated under direct vision without detailed examination of the pharynx, larynx, and associated structures, and upper GI tract. The upper GI tract was grossly normal. The major papilla was bulging. A [employer] 0.035 inch guidewire was passed into the biliary tree through a [employer] Omni FS 35 sphincterotome. The sphincterotome was advanced over the guidewire and the bile duct was then deeply cannulated. Contrast was injected. The lower third of the main bile duct contained three stones. The duct was moederately dilated. The cystic duct did not fill. A 10 mm biliary sphincterotomy was made with a monofilament traction (standard) sphincterotome using ERBE electrocautery. There was no post-sphincterotomy bleeding. The biliary tree was swept with a 15 mm balloon starting at the bifurcation. Three stones were removed. No stones remained. The total fluoroscopy exposure time was 1 minute and 11 seconds. Impression: - The major papilla appeared to be bulging. - Choledocholithiasis was found. Complete removal was accomplished by biliary sphincterotomy and balloon extraction. Recommendation: - [facility] care. Castro Love M.D. Castro Love MD 04/28/2019 4:07:30 PM This report has been signed electronically. Note Initiated On: 04/28/2019 2:23 PM Number of Addenda: 0 I attest to the content of the Intraoperative Record and orders documented therein, exceptions below {[id number]}
[2019-04-28] MEDS: D5W AND LACTATED RINGERS 1,000 ML IV SCH ×2 (16:44→21:21)
[2019-04-28] MEDS: LOVASTATIN 20 MG TAB PO SCH (21:11)
[2019-04-28] MEDS: IBUPROFEN 600 MG TAB PO SCH (21:11)
[2019-04-28] MEDS: LISINOPRIL 20 MG TAB PO SCH (21:12)
[2019-04-28] MEDS: ENOXAPARIN INJ 40 MG/0.4 ML SYR SQ SCH (21:12)
[2019-04-28] MEDS: MIRTAZAPINE TAB 15 MG TAB PO SCH (21:12)
[2019-04-29] MEDS: PIPERACILLIN/TAZOBACTAM 3.375 GM in DEXTROSE 5% 100 ML IV SCH ×3 (01:57→19:42)
[2019-04-29] MEDS: D5W AND LACTATED RINGERS 1,000 ML IV SCH ×6 (02:01→21:16)
[2019-04-29] MEDS: MoRPHine SULFATE 2 MG/ML CARP IV PRN ×6 (02:01→23:48)
[2019-04-29 06:48] LABS: Basophils # (auto) 0.01 K/uL (0-0.2); Basophils % (auto) 0.1 %; Hematocrit (blood only) 34.3 % (42-52); Hemoglobin 11.7 g/dL (14.0-18.0); Immature Granulocytes # (auto) 0.05 K/uL (0.00-0.02); Immature Granulocytes % (auto) 0.5 %; Lymphocytes # (auto) 1.12 K/uL (1.2-3.4); Lymphocytes % (auto) 11.4 %; Mean Corpuscular Hgb Conc 34.1 g/dL (32-36); Mean Corpuscular Volume 92.5 fL (80-100); Monocytes # (auto) 0.52 K/uL (0.11-0.59); Monocytes % (auto) 5.3 %; Neutrophils # (auto) 8.13 K/uL (1.4-6.5); Neutrophils % (auto) 82.7 %; Platelet Count 251 K/uL (130-400); RDW Coefficient of Variation 14.1 % (11.5-14.5); RDW Standard Deviation 48.2 fL (36.4-46.3); Red Blood Count 3.71 M/uL (4.7-6.1); White Blood Count 9.83 K/uL (4.8-10.8)
[2019-04-29 07:23] LABS: Albumin Globulin Ratio 0.6 (0.9-2); Albumin Level 2.6 gm/dl (3.4-5.0); BUN Creatinine Ratio 13.8 (10-20); Bilirubin Direct 6.4 mg/dl (0-0.2); Bilirubin,Total 8.2 mg/dl (0.2-1); Calcium 8.6 mg/dl (8.5-10.1); Creatinine Clr Calc Pharmacy 98.6 ml/min; Est GFR (African American) 107.6; Est GFR (Non-African American) 92.8; Globulin 4.3 gm/dl (2.5-4.0); Total Protein 6.9 gm/dl (6.4-8.2)
[2019-04-29] MEDS: ONDANSETRON INJ 2 MG/ML 2 ML VIAL IV PRN (08:39)
[2019-04-29] MEDS: IBUPROFEN 600 MG TAB PO SCH ×3 (08:40→21:15)
[2019-04-29] MEDS: PANTOprazole 40 MG TAB PO SCH (08:40)
--- NOTE | 2019-04-29 09:58 | Gastroenterology Progress Note ---
Date of Service April 29, 2019 Assessment & Plan (1) Choledocholithiasis: ERCP with sphincterotomy and stone extraction yesterday. Will need surgical consult for cholecystectomy, once pancreatitis improves. Continue IV fluids, pain control, anti-emetics. Would continue NPO status as he is continues with fairly significant abdominal pain. Follow labs. (2) Acute gallstone pancreatitis: as above Supervising Physician Co-Signing Physician Notes I have seen and examined the patient with Cammie Cisneros PA-C whose note reflects our findingds and plan. Subjective 64 year old male s/p ERCP with sphincterotomy and stone extraction yesterday for choledocholithiasis with gs pancreatitis. No stent was placed. He continues with abdominal pain and mild nausea today, but improved over yesterday. Continues wtih pruritus as well. LFTs and Lipase trending down. Review of Systems Constitutional: no fever, no chills, no fatigue and no weight loss Eyes: no eye pain and no worsening vision Ear, Nose, Mouth, Throat: no ear pain, no hearing loss, no nasal congestion and no sore throat Respiratory: no cough, no chest congestion and no wheezing Cardiovascular: no chest pain and no dyspnea Gastrointestinal: as per Subjective / HPI Musculoskeletal: no joint pain Integumentary: + pruritus; no rash Neurologic: no tingling, no numbness and no dizziness Psychiatric: no suicidal ideation and no confusion Endocrine: no cold intolerance and no heat intolerance Hematologic / Lymphatic: no easy bleeding and no easy bruising Allergy / Immunological: no problem reported Physical Exam Constitutional: WD/WN, vitals as above no acute distress Eyes: +scleral icterus ENMT: external ear and nose normal, oropharynx normal Neck: normal visual inspection Respiratory: normal respiratory effort, lungs clear to auscultation Cardiovascular: Rate/Rhythm: regular rate and regular rhythm Heart Sounds: no murmur Gastrointestinal (Abdomen): Inspection/Auscultation: normal bowel sounds Percussion/Palpation: + abdomen tender (moderate diffuse tenderness to pal pation) and abdomen soft Musculoskeletal: Head/Neck/Chest: normocephalic and head atraumatic Skin: no rashes, warm and dry + jaundice Neurologic: moves all extremities; no focal motor deficits Psychiatric: Orientation: alert and oriented x 3 Results & Data Vital Signs (Past 12 Hours) Vital Signs Temp Pulse Pulse Resp BP BP Pulse Ox 04/29/19 08:25 36.2 C L 54 L 22 158/74 H 94 04/29/19 04:00 36.7 C 67 20 130/63 96 04/28/19 22:57 36.4 C L 56 L 20 116/54 L 94 Laboratory Results - last 24 hr 04/29/19 04/29/19 06:29 06:29 WBC 9.83 RBC 3.71 L Hgb 11.7 L Hct 34.3 L MCV 92.5 MCH 31.5 MCHC 34.1 RDW Std Deviation 48.2 H RDW Coeff of Jonas 14.1 Plt Count 251 MPV 10.0 Immature Gran % (Auto) 0.5 Neut % (Auto) 82.7 Lymph % (Auto) 11.4 [place] % (Auto) 5.3 Eos % (Auto) 0.0 Baso % (Auto) 0.1 Immature Gran # (Auto) 0.05 H Neut # (Auto) 8.13 H Lymph # (Auto) 1.12 L [place] # (Auto) 0.52 Eos # (Auto) 0.00 Baso # (Auto) 0.01 Sodium 138 Potassium 4.0 Chloride 107 Carbon Dioxide 24 Anion Gap 7.0 BUN 11 Creatinine 0.82 Est Cr Clr Drug Dosing 98.6 Est GFR ( Amer) 107.6 Est GFR (Non-Af Amer) 92.8 BUN/Creatinine Ratio 13.8 Glucose 113 H Calcium 8.6 Total Bilirubin 8.2 H Direct Bilirubin 6.4 H AST 42 H ALT 60 Alkaline Phosphatase 243 H Total Protein 6.9 Albumin 2.6 L Globulin 4.3 H Albumin/Globulin Ratio 0.6 L Lipase 712 H
--- NOTE | 2019-04-29 16:08 | Surgery Consultation ---
Date of Consultation April 29, 2019 Assessment & Plan (1) Gall stone pancreatitis: 64 year-old male who presented to emergency department with complaint of upper abdominal pain, nausea, vomiting, and jaundice. Found to have choledocholithiasis and distal pancreatitis. Elevated t. bili at 8.0. S/p ERCP with biliary sphincterotomy and removal of choledocholithiasis. Lipase from 38157 --> 700. Plan: Discussed with patient indication for cholecystectomy given choledocholithiasis and gallstones pancreatitis to prevent further episodes. Discussed that there is about a 30% chance of recurrence of gallbladder not removed. Patient states he is interested in having surgery if he can have it within the next few days, if not could follow-up in [place] with his general practitioner. Repeat am labs including LFTS IF t. bili improves , plan for cholecystectomy tomorrow NPO after midnight Continue IV abx Continue IV fluid hydration continue medical management (2) Choledocholithiasis: plan as above Dr. Lacey has seen and examined pt, agrees with above. Supervising Physician Co-Signing Physician Notes I interviewed and examined this patient I agree with the above note. He has a history of gallstone induced pancreatitis. He will need to have a cholecystectomy. We discussed the laparoscopic cholecystectomy and the possible need to convert to an open procedure. We discussed the timing relative to his resolution of his hyperbilirubinemia. We will repeat that lab in the morning. At the present time he has no evidence of peritonitis. There is no evidence of acute cholecystitis by exam. I answered his questions. He generated some discussion about possibly returning back to [place] as he will no longer be incarcerated as of 1 week from today. He will make his final decision and we can then schedule accordingly. History of Present Illness Reason for Consultation: Gallstone pancreatitis and choledocholithiasis s/p ERCP Cholecystectomy Requesting Physician: Vee Attending Physician: Percy Baxter History of Present Illness Silvino is a 64 year-old male who presented to emergency department with 4-5 day history of epigastric pain with nausea , vomiting, and jaundice. States pain increasingly got worse. Pain caused him to double over and become lightheaded. He was brought to emergency room and found to have choledocholithiasis with t. bili elevated [place] 8.0 [place] [id number] consistent with gallstone pancreatitis as well. he is now s/p ERCP with biliary sphincterotomty and balloon extraction of stones. States he is feeling better but still having some mild pain. Still jaundiced but improving. Allergies Allergy/AdvReac Type Severity Reaction Status Date / Time No Known Allergies Allergy Unverified 04/27/19 12:14 Home Medications Home Medications Medication Instructions Recorded Confirmed Type aspirin 81 mg PO HS 04/27/19 04/27/19 History duloxetine 30 mg PO HS 04/27/19 04/27/19 History ibuprofen 600 mg PO TID 04/27/19 04/27/19 History lisinopril 20 mg PO HS 04/27/19 04/27/19 History lovastatin 20 mg PO HS 04/27/19 04/27/19 History magnesium hydroxide [Milk of 30 ml PO QPM PRN 04/27/19 04/27/19 History Magnesia] mirtazapine 15 mg PO HS 04/27/19 04/27/19 History omeprazole 20 mg PO QAM 04/27/19 04/27/19 History promethazine 25 mg IM Q6H PRN 04/27/19 04/27/19 History Patient History Medical History Hyperlipidemia (Chronic) Hypertension (Chronic) Hypokalemia (Acute) Obstructive jaundice (Acute) Acute gallstone pancreatitis (Acute) Hepatitis C (Resolved) Surgical History S/P ERCP on 04/28 Family History Other Family history non-contributory Social History Preferred Language: Romansh Communication Ability: Effective Beliefs That Will Affect Care: None Current Living Situation: Other Current Living Situation Comment: From [facility] [place] Feels Safe at Home: Yes Smoking Status: Former smoker Tobacco Type: cigarettes Do You Dip or Chew Tobacco: No Hx Alcohol Use: No Hx Substance Use: No Review of Systems Review of Systems: All systems reviewed & are unremarkable except as noted in HPI & below Physical Exam Constitutional: WD/WN, vitals as above no acute distress and not ill appearing Respiratory: normal respiratory effort, lungs clear to auscultation Cardiovascular: RRR, no murmur, no edema Gastrointestinal (Abdomen): Inspection/Auscultation: abdomen normal to inspection; abdomen not distended Percussion/Palpation: + abdomen tender (epigastric) and abdomen soft; no guarding and abdomen not rigid Skin: no rashes, warm and dry + jaundice Psychiatric: A+Ox3, euthymic affect Results & Data Vital Signs (Past 12 Hours) Vital Signs Temp Pulse Resp BP Pulse Ox 04/29/19 15:45 36.4 C L 48 L 20 149/82 H 95 04/29/19 14:20 36.9 C 60 20 164/70 H 93 04/29/19 12:18 36.7 C 54 L 18 169/82 H 95 04/29/19 08:25 36.2 C L 54 L 22 158/74 H 94 Laboratory Results 04/29/19 04/29/19 Range/Units 06:29 06:29 WBC 9.83 (4.8-10.8) K/uL RBC 3.71 L (4.7-6.1) M/uL Hgb 11.7 L (14.0-18.0) g/dL Hct 34.3 L (42-52) % MCV 92.5 (80-100) fL MCH 31.5 (25-34) pg MCHC 34.1 (32-36) g/dL RDW Std Deviation 48.2 H (36.4-46.3) fL RDW Coeff of Jonas 14.1 (11.5-14.5) % Plt Count 251 (130-400) K/uL MPV 10.0 (7.4-10.4) fL Immature Gran % (Auto) 0.5 % Neut % (Auto) 82.7 % Lymph % (Auto) 11.4 % [place] % (Auto) 5.3 % Eos % (Auto) 0.0 % Baso % (Auto) 0.1 % Immature Gran # (Auto) 0.05 H (0.00-0.02) K/uL Neut # (Auto) 8.13 H (1.4-6.5) K/uL Lymph # (Auto) 1.12 L (1.2-3.4) K/uL [place] # (Auto) 0.52 (0.11-0.59) K/uL Eos # (Auto) 0.00 (0-0.5) K/uL Baso # (Auto) 0.01 (0-0.2) K/uL Sodium 138 (136-145) mmol/L Potassium 4.0 (3.5-5.1) mmol/L Chloride 107 (98-107) mmol/L Carbon Dioxide 24 (21-32) mmol/L Anion Gap 7.0 (3-11) BUN 11 (7-18) mg/dl Creatinine 0.82 (0.6-1.4) mg/dl Est Cr Clr Drug Dosing 98.6 ml/min Est GFR ( Amer) 107.6 Est GFR (Non-Af Amer) 92.8 BUN/Creatinine Ratio 13.8 (10-20) Glucose 113 H (70-99) mg/dl Calcium 8.6 (8.5-10.1) mg/dl Total Bilirubin 8.2 H (0.2-1) mg/dl Direct Bilirubin 6.4 H (0-0.2) mg/dl AST 42 H (15-37) U/L ALT 60 (12-78) U/L Alkaline Phosphatase 243 H (45-117) U/L Total Protein 6.9 (6.4-8.2) gm/dl Albumin 2.6 L (3.4-5.0) gm/dl Globulin 4.3 H (2.5-4.0) gm/dl Albumin/Globulin Ratio 0.6 L (0.9-2) Lipase 712 H (73-393) U/L Diagnostic Findings CT abd pelvis IV con only CT DOSE: 466.70 mGy.cm HISTORY: Pain. Nausea. elevated lipase, LFTS-Eval for GB/pancreas dx TECHNIQUE: Multiaxial CT images of the abdomen and pelvis were performed following the use of intravenous contrast. A dose lowering technique was utilized adhering to the principles of ALARA. COMPARISON STUDY: None. FINDINGS: Lung bases are clear. Prominent biliary ductal system. Distal common bile duct measures up to 1.4 cm. Radiopaque material within the distal common duct suggest choledocholithiasis. Gallbladder soft tissues not appear distended. Spleen is uniform. No distention of the pancreatic duct. Potential trace peripancreatic infiltrative change of the pancreatic tail. No evidence for abscess or collection. Kidneys negative for hydronephrosis. 3.8 cm right renal cyst. IMPRESSION: 1. Distended biliary ductal system with findings of distal common bile duct choledocholithiasis. 2. 3.8 cm right renal cyst. 3. Study is otherwise suggestive of potential minimal pancreatic tail pancreatitis. ERCP on 04/28/2019 Impression: - The major papilla appeared to be bulging. - Choledocholithiasis was found. Complete removal was accomplished by biliary sphincterotomy and balloon extraction.
--- NOTE | 2019-04-29 17:41 | Anesthesiology Consultation ---
Date of Service April 29, 2019 Assessment & Plan (1) Encounter for pre-operative examination: Chart Review Chart Review: Acceptable Risk for Surgery History Surgery Operation Date: 04/28/19 14:00 Proposed Procedures p Endoscopic Retrograde Cholangiopancreatogram - Castro Love MD Operation Date: 04/30/19 10:05 Proposed Procedures p Laparoscopic Cholecystectomy with Possible Cholangiogram - Cachorro Lacey MD Height/Weight Height: 6 ft Weight: 87.2 kg Allergies Allergy/AdvReac Type Severity Reaction Status Date / Time No Known Allergies Allergy Unverified 04/27/19 12:14 Medications Home Medications Medication Instructions Recorded Confirmed Last Taken aspirin 81 mg PO HS 04/27/19 04/27/19 Unknown duloxetine 30 mg PO HS 04/27/19 04/27/19 04/26/19 ibuprofen 600 mg PO TID 04/27/19 04/27/19 Unknown lisinopril 20 mg PO HS 04/27/19 04/27/19 Unknown lovastatin 20 mg PO HS 04/27/19 04/27/19 Unknown magnesium hydroxide [Milk of 30 ml PO QPM PRN 04/27/19 04/27/19 04/26/19 Magnesia] mirtazapine 15 mg PO HS 04/27/19 04/27/19 04/25/19 omeprazole 20 mg PO QAM 04/27/19 04/27/19 Unknown promethazine 25 mg IM Q6H PRN 04/27/19 04/27/19 Unknown Active Medications Generic Name Dose Route Start Last Admin Trade Name Freq PRN Reason Stop Dose Admin Enoxaparin Sodium 40 mg 04/27/19 21:00 04/28/19 21:12 Lovenox SQ 05/27/19 20:59 40 mg Q24H CRYSTAL Administration Piperacillin Sod/Tazobactam 115 mls @ 28.75 mls/hr 04/28/19 02:00 04/29/19 15:03 Sod 3.375 gm/ Dextrose IV 05/08/19 01:59 Infused Q8H CRYSTAL Infusion Protocol Dextrose/Lactated Ringer's 1,000 mls @ 200 mls/hr 04/28/19 16:00 04/29/19 16:10 D5w And Lactated Ringers IV 05/28/19 15:59 200 mls/hr .Q5H CRYSTAL Administration Ibuprofen 600 mg 04/28/19 21:00 04/29/19 13:23 Motrin PO 05/28/19 20:59 600 mg TID CRYSTAL Administration Lisinopril 20 mg 04/27/19 21:00 04/28/19 21:12 Zestril PO 05/27/19 20:59 20 mg HS CRYSTAL Administration Lovastatin 20 mg 04/28/19 21:00 04/28/19 21:11 Mevacor PO 05/28/19 20:59 20 mg HS CRYSTAL Administration Mirtazapine 15 mg 04/27/19 21:00 04/28/19 21:12 Remeron PO 05/27/19 20:59 15 mg HS CRYSTAL Administration Morphine Sulfate 2 mg 04/27/19 19:32 04/29/19 16:05 Morphine Sulfate IV 05/11/19 19:31 2 mg Q3H PRN Administration Pain Ondansetron HCl 4 mg 04/27/19 19:32 04/29/19 08:39 Zofran IV 05/27/19 19:31 4 mg Q6H PRN Administration Nausea Pantoprazole Sodium 40 mg 04/28/19 09:00 04/29/19 08:40 Protonix PO 05/28/19 08:59 40 mg QAM CRYSTAL Administration NPO Date Last Intake of Fluids: 04/28/19 Time Last Intake of Fluids: 08:00 Last Intake of Fluids Comment: sip with meds Date Last Intake of Solids: 04/27/19 Time Last Intake of Solids: 23:59 Past Medical History Medical History Hyperlipidemia (Chronic) Hypertension (Chronic) Hypokalemia (Acute) Obstructive jaundice (Acute) Acute gallstone pancreatitis (Acute) Hepatitis C (Resolved) Past Family History Family History Other Family history non-contributory Past Surgical History Surgical History S/P ERCP on 04/28 Social History Smoking Status: Former smoker tobacco type: cigarettes Do You Dip or Chew Tobacco: No Hx Alcohol Use: No Hx Substance Use: No substance use type: IV drugs Physical Exam Vital Signs Last Vital Signs Temp 36.4 C L 04/29/19 15:45 Pulse 48 L 04/29/19 15:45 Resp 20 04/29/19 15:45 BP 149/82 H 04/29/19 15:45 Pulse Ox 95 04/29/19 15:45 Testing Laboratory Results 04/29/19 06:29 04/29/19 06:29 PT 10.6 Seconds (9.0-12.0) 04/27/19 20:12 INR 1.0 (0.9-1.1) 04/27/19 20:12 Urine Color Dark Yellow 04/27/19 13:15 Urine Appearance Clear (Clear) 04/27/19 13:15 Urine pH 6.0 (4.5-7.5) 04/27/19 13:15 Ur Specific [place] 1.043 (1.000-1.030) H 04/27/19 13:15 Urine Protein Negative (Negative) 04/27/19 13:15 Urine Glucose (UA) Negative (Negative) 04/27/19 13:15 Urine Ketones Negative (Negative) 04/27/19 13:15 Urine Nitrite Negative (Negative) 04/27/19 13:15 Ur Leukocyte Esterase Negative (Negative) 04/27/19 13:15 Electrocardiogram Date: 04/27/19 rate 59 ectopic atrial vs junctional rhythm Chest X-Ray Date: 04/27/19 Findings: + NAD
[2019-04-29] MEDS: ENOXAPARIN INJ 40 MG/0.4 ML SYR SQ SCH (21:13)
[2019-04-29] MEDS: LOVASTATIN 20 MG TAB PO SCH (21:14)
[2019-04-29] MEDS: MIRTAZAPINE TAB 15 MG TAB PO SCH (21:15)
[2019-04-29] MEDS: LISINOPRIL 20 MG TAB PO SCH (21:15)
[2019-04-29] MEDS ORDERED: Nursing to Pharmacy Communication ONE (23:26)
--- NOTE | 2019-04-29 23:53 | Hospitalist Progress Note ---
Date of Service April 29, 2019 Assessment & Plan (1) Acute gallstone pancreatitis: N.p.o. IV fluids. Parenteral narcotics and antiemetics. GI consultation. Patient had an ERCP and stone extraction on 04/28 Patient will likely need a cholecystectomy once his pancreatitis improves. will consult Gen surg. today. Patient is aware. Lipase has improved. (2) Obstructive jaundice: Due to distal choledocholithiasis. N.p.o. IV Zosyn. GI consultation As noted above. (3) Hypokalemia: IV replacement. Serial labs (4) Hepatitis C: Necessary precautions (5) Hypertension: Treated with lisinopril (6) Hyperlipidemia: Hold statin therapy (7) DVT prophylaxis: Lovenox subcu Spent 35 minutes. This included discussion with specialists, and image review. Subjective 64 yo male reports doing well. He still has abd. pain but it has decreased in intensity. Review of Systems Review of Systems: All systems reviewed & are unremarkable except as noted in HPI & below Physical Exam Physical Exam: General-alert and oriented x3, no fevers, no chills HEENT-head atraumatic and normocephalic, TMs intact bilaterally, pupils equal and reactive to light, extraocular muscles intact. Mild icterus noted Neck-no lymphadenopathy or thyromegaly, trachea midline Chest-clear to auscultation percussion. No rales wheezing or rhonchi Cardiac-regular rate and rhythm, normal S1 and S2, no murmurs Abdomen-epigastric tenderness. No masses. No rebound or guarding. Bowel sounds are active Extremities-no cyanosis, clubbing, or edema Neuro-cranial nerves II through XII intact, motor and sensory function within normal limits, strength symmetrical 5/5, no focal deficits Psych-normal affect, normal mood Results & Data Vital Signs (Past 12 Hours) Vital Signs Temp Pulse Resp BP BP Pulse Ox 04/29/19 23:45 36.6 C 58 L 18 162/82 H 93 04/29/19 21:10 158/73 H 04/29/19 16:40 36.6 C 55 L 16 156/83 H 95 04/29/19 15:45 36.4 C L 48 L 20 149/82 H 95 04/29/19 14:20 36.9 C 60 20 164/70 H 93 04/29/19 12:18 36.7 C 54 L 18 169/82 H 95 PG Care Time/CCT Total # of Minutes Spent Total Time Spent with Patient: Total time spent is greater than 50% in coordination of care (as documented) at patient's floor/unit and/or counseling patient:
[2019-04-30] MEDS: D5W AND LACTATED RINGERS 1,000 ML IV SCH ×4 (01:59→23:37)
[2019-04-30] MEDS: PIPERACILLIN/TAZOBACTAM 3.375 GM in DEXTROSE 5% 100 ML IV SCH ×3 (03:54→19:44)
[2019-04-30] MEDS: MoRPHine SULFATE 2 MG/ML CARP IV PRN (06:25)
[2019-04-30 08:27] LABS: Basophils # (auto) 0.02 K/uL (0-0.2); Basophils % (auto) 0.4 %; Eosinophils # (auto) 0.08 K/uL (0-0.5); Eosinophils % (auto) 1.5 %; Hematocrit (blood only) 34.3 % (42-52); Hemoglobin 11.3 g/dL (14.0-18.0); Immature Granulocytes # (auto) 0.04 K/uL (0.00-0.02); Immature Granulocytes % (auto) 0.7 %; Lymphocytes # (auto) 1.09 K/uL (1.2-3.4); Lymphocytes % (auto) 19.9 %; Mean Corpuscular Hgb Conc 32.9 g/dL (32-36); Mean Corpuscular Volume 95.3 fL (80-100); Mean Platelet Volume 10.3 fL (7.4-10.4); Monocytes # (auto) 0.48 K/uL (0.11-0.59); Monocytes % (auto) 8.7 %; Neutrophils # (auto) 3.78 K/uL (1.4-6.5); Neutrophils % (auto) 68.8 %; Platelet Count 234 K/uL (130-400); RDW Coefficient of Variation 14.5 % (11.5-14.5); RDW Standard Deviation 50.3 fL (36.4-46.3); White Blood Count 5.49 K/uL (4.8-10.8)
[2019-04-30 08:48] LABS: Albumin Globulin Ratio 0.6 (0.9-2); Albumin Level 2.5 gm/dl (3.4-5.0); BUN Creatinine Ratio 9.4 (10-20); Bilirubin,Total 6.1 mg/dl (0.2-1); Calcium 8.8 mg/dl (8.5-10.1); Creatinine Clr Calc Pharmacy 95.1 ml/min; Est GFR (Non-African American) 91.4; Potassium 3.7 mmol/L (3.5-5.1); Total Protein 6.5 gm/dl (6.4-8.2)
[2019-04-30] MEDS ORDERED: GLYCOPYRROLATE 0.2 MG/ML VIAL ONE ×2 (09:02→12:00)
[2019-04-30] MEDS ORDERED: DEXAMETHASONE SOD INJ 4 MG/ML VIAL ONE (09:02)
[2019-04-30] MEDS ORDERED: PROPOFOL IV EMULSION 10 MG/ML 20 ML VIAL IV ONE (09:02)
[2019-04-30] MEDS ORDERED: NEOSTIGMINE METHYLSULFATE 5 MG/5 ML SYR ONE (09:02)
[2019-04-30] MEDS ORDERED: ONDANSETRON INJ 2 MG/ML 2 ML VIAL ONE (09:02)
[2019-04-30] MEDS ORDERED: LIDOCAINE HCL 2% 2 ML VIAL/AMP(20MG/ML) INFIL ONE (09:02)
[2019-04-30] MEDS ORDERED: fentaNYL citrate 100 MCG/2 ML VIAL ONE ×2 (09:03→11:03)
[2019-04-30] MEDS ORDERED: MIDAZOLAM HCL 1 MG/ML 2ML VIAL ONE (09:03)
[2019-04-30] MEDS ORDERED: LARYING-O-JET KIT (LTA) ONE (09:06)
[2019-04-30] MEDS: IBUPROFEN 600 MG TAB PO SCH (09:47)
[2019-04-30] MEDS: PANTOprazole 40 MG TAB PO SCH (09:47)
[2019-04-30] MEDS ORDERED: ATROPINE SULFATE 0.1 MG/ML 10ML SYR IV PRN (09:54)
[2019-04-30] MEDS ORDERED: fentaNYL citrate 100 MCG/2 ML VIAL IV PRN (09:54)
[2019-04-30] MEDS ORDERED: ONDANSETRON INJ 2 MG/ML 2 ML VIAL IV PRN (09:54)
[2019-04-30] MEDS ORDERED: ePHEDrine sulfate 50 MG/ML AMP IV PRN (09:54)
[2019-04-30] MEDS ORDERED: CEFAZOLIN 250 MG/ML 1 GM VIAL ONE (10:16)
[2019-04-30] MEDS ORDERED: HEPARIN (PORCINE) 1000 UNIT/ML 10 ML (CATH LAB USE ONLY) ONE (10:16)
[2019-04-30] MEDS ORDERED: BUPIVACAINE 0.5 % 5 MG/1 ML MPF 30ML VIAL ONE (10:16)
--- NOTE | 2019-04-30 10:30 | History & Physical Bridge Note ---
Date of Service April 30, 2019 History & Physical Bridge Note I have examined the patient, reviewed the History & Physical and in the interval since the performance of the History & Physical I have noted the following changes of clinical significance: no changes noted
--- NOTE | 2019-04-30 11:35 | Post Operative Brief Note ---
Immediate Post Op Note v1 Date of Surgery April 30, 2019 Pre & Post Diagnosis Operation Date: 04/30/19 10:05 Pre-Op Diagnosis: Cholelithiasis, history of choledocholithiasis, S/P ERCP Post-Op Diagnosis: Same Procedure Operation Date: 04/30/19 10:05 Actual Procedures Laparoscopic Cholecystectomy(Not Applicable) - Cachorro Lacey MD Surgeon Cachorro Lacey MD Costumer None Estimated Blood Loss 10 Findings Consistent with Post-Op Diagnosis Specimens Gallbladder and contents Anesthesia Type General Complications none
--- NOTE | 2019-04-30 12:28 | Anesthesiology Progress Note ---
Date of Service April 30, 2019 Anesthesia Post Procedure Vital Signs Vital Signs: Temp Pulse Pulse Pulse Resp BP BP 04/30/19 12:20 69 21 171/89 H 04/30/19 12:10 83 20 162/94 H 04/30/19 12:00 77 22 161/82 H 04/30/19 11:53 98.6 F 88 21 169/89 H 04/30/19 09:54 100.6 F H 64 20 163/81 H 04/30/19 07:25 98.8 F 60 20 168/83 H 04/29/19 23:45 97.9 F 58 L 18 162/82 H 04/29/19 21:10 158/73 H 04/29/19 16:40 97.9 F 55 L 16 156/83 H 04/29/19 15:45 97.5 F L 48 L 20 149/82 H 04/29/19 14:20 98.4 F 60 20 164/70 H Pulse Ox 04/30/19 12:20 97 04/30/19 12:10 91 04/30/19 12:00 94 04/30/19 11:53 96 04/30/19 09:54 95 04/30/19 07:25 91 04/29/19 23:45 93 04/29/19 21:10 04/29/19 16:40 95 04/29/19 15:45 95 04/29/19 14:20 93 Pain Intensity Abdomen: Pain Intensity: 2 Transfer of Care Handoff Completed per policy Notes Mental Status: alert / awake / arousable and participated in evaluation Patient Amnestic to Procedure: Yes Nausea / Vomiting: adequately controlled Pain: adequately controlled Airway Patency, RR, SpO2: stable & adequate BP & HR: stable & adequate Hydration State: stable & adequate Anesthetic Complications: no major complications apparent and Pt Satisfied with anesthetic care
[2019-04-30] MEDS: OXYCODONE/ACETAMINOPHEN 5mg/325mg TAB PO PRN ×2 (13:16→19:43)
[2019-04-30] MEDS: MIRTAZAPINE TAB 15 MG TAB PO SCH (21:06)
[2019-04-30] MEDS: LISINOPRIL 20 MG TAB PO SCH (21:06)
[2019-04-30] MEDS: LOVASTATIN 20 MG TAB PO SCH (21:06)
--- NOTE | 2019-04-30 21:51 | Operative Report ---
DATE OF OPERATION: 04/30/2019 PREOPERATIVE DIAGNOSES: Cholelithiasis, history of choledocholithiasis status post ERCP. POSTOPERATIVE DIAGNOSES: Cholelithiasis, history of choledocholithiasis status post ERCP. PROCEDURE: Laparoscopic cholecystectomy. SURGEON: Cachorro Lacey MD. FINDINGS: The gallbladder and the surrounding cystic duct and cystic artery had a lot of surrounding edema. The gallbladder wall was mildly thickened. The cystic duct was mildly dilated. The liver was firm and had a micronodular surface to it. The visible bowel appeared normal. TECHNIQUE: The patient was given a general anesthetic and the area was prepped and draped in the usual sterile fashion. Transverse incision was made below the umbilicus, carried down through the subcutaneous tissue to the fascia, which was grasped with 2 Bren clamps and incised between. The peritoneum was identified, incised, and the introducer was placed bluntly. The abdomen was then insufflated to a pressure of 15 mmHg with carbon dioxide. The upper midline, midclavicular and anterior axillary introducers were placed under direct vision through small skin incisions. Traction was placed on the gallbladder and the peritoneum was opened on the lateral side of the neck of the gallbladder, peeled towards the common bile duct. The neck and infundibulum of the gallbladder were dissected away from the liver on the lateral side allowing better mobility. Further dissection required some dissection of adhesions away from the inferior surface of the liver just medial to the gallbladder. That allowed even better visualization. The peritoneum and connective tissue were then bluntly peeled towards the common bile duct using minimal cautery where needed. The triangle of Calot was opened and the neck and infundibulum were dissected away from the liver on that medial side exposing the medial aspect of the cystic duct and exposing the cystic duct lymph node. I dissected lateral to the lymph node exposing even better the medial aspect of the cystic duct. There were some flimsy attachments and some thickened attachments up near the junction with the gallbladder that were peeled. I then was able to further dissect the body of the gallbladder away from the liver on the lateral side allowing better mobility and elevated that and dissected and freed the lateral side of the cystic duct and created a window posterior to that area. Further dissection was then carried away dissecting the body of the gallbladder away from the liver on the medial side, which connected with the lateral dissection creating a nice window behind the neck and infundibulum of the gallbladder. The cystic artery was seen behind the cystic duct lymph node. Two clips were placed on the proximal cystic duct, one near its junction with the gallbladder and it was divided. That allowed me to elevate the infundibulum and confirmed the position of the cystic artery. It was clamped twice proximally and once near the gallbladder and divided. The feeding lymphatics of the cystic duct lymph node were then divided between clips as well. I then elevated the gallbladder. There was 1 other tubular structure in the mid portion of the body that appeared to either be a large lymphatic or posterior branch of the artery that was isolated, clipped and divided and the gallbladder dissection off the liver was completed using cautery. It was placed into an Endobag and brought out through the upper midline incision. Then introducer was replaced. One of the graspers had created a hole in the gallbladder at one point. There was no stone spillage, but there was some bile spillage. The subdiaphragmatic and subhepatic spaces were then irrigated and the irrigation removed and that was repeated until the return was clear. The gallbladder bed of the liver was inspected. There were 2 areas of oozing that were easily controlled with cautery. The previously placed clips were inspected and were intact. Further irrigation was performed as described above and removed and the return was clear. The gas was allowed to escape and the introducers were removed. The fascia of the umbilical and upper midline introducer sites was closed with interrupted 0 Vicryl and the skin of all the incisions was closed with 4-0 Monocryl in either interrupted or running subcuticular fashion. The skin was anesthetized with 0.5% Marcaine. The skin was cleansed, dried, benzoin placed and Steri-Strips applied. Estimated blood loss was 10 mL. Sponge, needle and instrument counts were correct prior to closure. The patient tolerated the surgical procedure without complication and was transferred to recovery. I attest to the content of the Intraoperative Record and any orders documented therein. Any exception s are noted below.
--- NOTE | 2019-04-30 23:15 | Hospitalist Progress Note ---
Date of Service April 30, 2019 Assessment & Plan (1) Acute gallstone pancreatitis: S/P laparascopic cholecystectomy and S/P ERCP and stone removal. Patient reports feeling much better than before. Will monitor for another day. Will continue zosyn for 24 hours and then will stop. Anticipate discharge within 24 hours. (2) Obstructive jaundice: Improving as noted above. (3) Hypokalemia: IV replacement. Serial labs (4) Hepatitis C: Necessary precautions (5) Hypertension: Treated with lisinopril (6) Hyperlipidemia: Hold statin therapy (7) DVT prophylaxis: Lovenox subcu Subjective 64 yo male reports feeling much better. He states his abdominal pain has improved. He denies any nausea vomiting. Review of Systems Review of Systems: Constitutional-no fever or chills ENT-no blurred vision, no double vision, no epistaxis, no sore throat Respiratory-no cough, no wheezing, no shortness of breath Cardiac-no palpitations, no chest pain, no syncope GI-epigastric discomfort. Nausea. Vomiting. No hematemesis. No coffee-ground emesis -no urinary retention, no urinary incontinence, no dysuria, no hematuria Musculoskeletal-no joint pain, no muscle tenderness Skin-no bruising, no rashes, no pruritus Neuro-no isolated weakness, no paresthesia, no weakness Psych-no depression, no anxiety Physical Exam Physical Exam: General-alert and oriented x3, no fevers, no chills HEENT-head atraumatic and normocephalic, TMs intact bilaterally, pupils equal and reactive to light, extraocular muscles intact. Mild icterus noted (this has decreased) Neck-no lymphadenopathy or thyromegaly, trachea midline Chest-clear to auscultation percussion. No rales wheezing or rhonchi Cardiac-regular rate and rhythm, normal S1 and S2, no murmurs Abdomen-laraparascopic incisions noted, covered by dressing, soft, No masses. No rebound or guarding. Bowel sounds are active Extremities-no cyanosis, clubbing, or edema Neuro-cranial nerves II through XII intact, motor and sensory function within normal limits, strength symmetrical 5/5, no focal deficits Psych-normal affect, normal mood Results & Data Vital Signs (Past 12 Hours) Vital Signs Temp Pulse Pulse Resp BP BP Pulse Ox 04/30/19 22:33 36.7 C 52 L 16 142/68 H 95 04/30/19 19:57 36.4 C L 51 L 18 166/82 H 95 04/30/19 15:47 36.9 C 58 L 18 168/91 H 95 04/30/19 15:06 36.9 C 62 16 162/89 H 04/30/19 15:03 61 18 149/79 H 97 04/30/19 14:31 36.9 C 04/30/19 13:38 37.7 C H 60 15 183/96 H 98 04/30/19 13:18 36.9 C 64 16 182/91 H 97 04/30/19 13:02 37.3 C 62 16 192/102 H 191/99 H 98 04/30/19 12:30 36.8 C 66 22 173/91 H 96 04/30/19 12:20 69 21 171/89 H 97 04/30/19 12:10 83 20 162/94 H 91 04/30/19 12:00 77 22 161/82 H 94 04/30/19 11:53 37.0 C 88 21 169/89 H 96 PG Care Time/CCT Total # of Minutes Spent Total Time Spent with Patient: Total time spent is greater than 50% in coordination of care (as documented) at patient's floor/unit and/or counseling patient:
[2019-05-01] MEDS: PIPERACILLIN/TAZOBACTAM 3.375 GM in DEXTROSE 5% 100 ML IV SCH (03:47)
[2019-05-01] MEDS: OXYCODONE/ACETAMINOPHEN 5mg/325mg TAB PO PRN ×4 (03:53→15:22)
[2019-05-01] MEDS: PANTOprazole 40 MG TAB PO SCH (08:01)
[2019-05-01] MEDS: ONDANSETRON INJ 2 MG/ML 2 ML VIAL IV PRN (08:10)
--- NOTE | 2019-05-01 08:17 | Anesthesiology Progress Note ---
Date of Service May 01, 2019 Anesthesia Post Procedure Vital Signs Vital Signs: Temp Pulse Pulse Resp BP BP Pulse Ox 05/01/19 07:18 37.0 C 48 L 15 181/91 H 95 05/01/19 04:06 166/68 H 05/01/19 03:05 36.9 C 48 L 16 178/89 H 96 04/30/19 22:33 36.7 C 52 L 16 142/68 H 95 04/30/19 19:57 36.4 C L 51 L 18 166/82 H 95 04/30/19 15:47 36.9 C 58 L 18 168/91 H 95 04/30/19 15:06 36.9 C 62 16 162/89 H 04/30/19 15:03 61 18 149/79 H 97 04/30/19 14:31 36.9 C 04/30/19 13:38 37.7 C H 60 15 183/96 H 98 04/30/19 13:18 36.9 C 64 16 182/91 H 97 04/30/19 13:02 37.3 C 62 16 192/102 H 191/99 H 98 04/30/19 12:30 36.8 C 66 22 173/91 H 96 04/30/19 12:20 69 21 171/89 H 97 04/30/19 12:10 83 20 162/94 H 91 04/30/19 12:00 77 22 161/82 H 94 04/30/19 11:53 37.0 C 88 21 169/89 H 96 04/30/19 09:54 38.1 C H 64 20 163/81 H 95 Pain Intensity Abdomen: Pain Intensity: 6 Notes Mental Status: alert / awake / arousable and participated in evaluation Patient Amnestic to Procedure: Yes Nausea / Vomiting: improving with treatment Pain: adequately controlled Airway Patency, RR, SpO2: stable & adequate BP & HR: stable & adequate Hydration State: stable & adequate Anesthetic Complications: no major complications apparent and Pt Satisfied with anesthetic care
--- NOTE | 2019-05-01 08:40 | Surgery Progress Note ---
Date of Service May 01, 2019 Assessment & Plan (1) Gall stone pancreatitis: POD # 1 s/p laparoscopic cholecystectomy - afebrile - HTN - no labs for today , will order to check t. bili - no n/v, hanh clear liquids - post op pain at incision sites Plan: Check labs cbc, cmp May advance to regular diet from surgical standpoint, okay for discharge planning to return to [place] next week after being released. Should follow up with PCP if any concerns. Discharge instructions reviewed Dr. Lacey has seen and examined pt, agrees with above. Subjective feeling much better having some pain at incision sites no n/v tolerated clear liquids Physical Exam Constitutional: WD/WN, vitals as above no acute distress Respiratory: no respiratory distress and no labored breathing Gastrointestinal (Abdomen): Inspection/Auscultation: abdomen normal to inspection; abdomen not distended Percussion/Palpation: + abdomen tender (at incision sites) and abdomen soft; no guarding and abdomen not rigid Skin: no rashes, warm and dry + incision (clean/dry/intact with steri strips) Psychiatric: A+Ox3, euthymic affect Results & Data Vital Signs (Past 12 Hours) Vital Signs Temp Pulse Resp BP BP Pulse Ox 05/01/19 07:18 37.0 C 48 L 15 181/91 H 95 05/01/19 04:06 166/68 H 05/01/19 03:05 36.9 C 48 L 16 178/89 H 96 04/30/19 22:33 36.7 C 52 L 16 142/68 H 95
[2019-05-01 08:53] LABS: Basophils # (auto) 0.01 K/uL (0-0.2); Basophils % (auto) 0.2 %; Eosinophils # (auto) 0.02 K/uL (0-0.5); Eosinophils % (auto) 0.3 %; Hematocrit (blood only) 31.7 % (42-52); Hemoglobin 10.5 g/dL (14.0-18.0); Immature Granulocytes # (auto) 0.03 K/uL (0.00-0.02); Immature Granulocytes % (auto) 0.5 %; Lymphocytes # (auto) 1.35 K/uL (1.2-3.4); Lymphocytes % (auto) 22.5 %; Mean Corpuscular Hgb Conc 33.1 g/dL (32-36); Mean Corpuscular Volume 94.6 fL (80-100); Mean Platelet Volume 9.9 fL (7.4-10.4); Monocytes # (auto) 0.43 K/uL (0.11-0.59); Monocytes % (auto) 7.2 %; Neutrophils # (auto) 4.15 K/uL (1.4-6.5); Neutrophils % (auto) 69.3 %; Platelet Count 247 K/uL (130-400); RDW Coefficient of Variation 14.4 % (11.5-14.5); RDW Standard Deviation 49.2 fL (36.4-46.3); Red Blood Count 3.35 M/uL (4.7-6.1); White Blood Count 5.99 K/uL (4.8-10.8)
[2019-05-01 09:11] LABS: Albumin Level 2.5 gm/dl (3.4-5.0); BUN Creatinine Ratio 10.1 (10-20); Calcium 8.5 mg/dl (8.5-10.1); Est GFR (African American) 108.7; Est GFR (Non-African American) 93.7; Potassium 3.5 mmol/L (3.5-5.1)
[2019-05-01 09:14] LABS: Albumin Globulin Ratio 0.6 (0.9-2); Bilirubin,Total 4.2 mg/dl (0.2-1); Globulin 3.9 gm/dl (2.5-4.0); Total Protein 6.4 gm/dl (6.4-8.2)
--- NOTE | 2019-05-10 22:26 | Discharge Summary ---
Date of Service May 01, 2019 Admission HPI Per Admitting Provider 64-year-old male with 4 to 5 days of epigastric discomfort nausea and vomiting and development of jaundice. His symptoms have steadily grown worse and he was [facility]. He is found to have acute gallstone pancreatitis with distal choledocholithiasis causing some obstructive jaundice. Total bilirubin is 8.0. Lipase 14,899. Potassium 3.4. GI consultation has already been requested. He is admitted for further evaluation and treatment. No hematemesis melena or hematochezia. No fever. Principal Diagnosis Acute pancreatitis from gall stones Discharge Exam General-alert and oriented x3, no fevers, no chills HEENT-head atraumatic and normocephalic, TMs intact bilaterally, pupils equal and reactive to light, extraocular muscles intact. Mild icterus noted (this has decreased) Neck-no lymphadenopathy or thyromegaly, trachea midline Chest-clear to auscultation percussion. No rales wheezing or rhonchi Cardiac-regular rate and rhythm, normal S1 and S2, no murmurs Abdomen-laraparascopic incisions noted, covered by dressing, soft, No masses. No rebound or guarding. Bowel sounds are active Extremities-no cyanosis, clubbing, or edema Neuro-cranial nerves II through XII intact, motor and sensory function within normal limits, strength symmetrical 5/5, no focal deficits Psych-normal affect, normal mood Discharge Data Allergies Allergy/AdvReac Type Severity Reaction Status Date / Time No Known Allergies Allergy Unverified 04/27/19 12:14 Consultations 04/27/19 13:01 ED Decision to Admit Stat 04/27/19 19:32 Consult Gastroenterology Routine 04/29/19 15:02 Consult General Surgery Routine Procedures Performed Operation Date: 04/28/19 14:00 Actual Procedures p Endoscopic Retrograde Cholangiopancreatogram(Not Applicable) - Castro Love MD Operation Date: 04/30/19 10:05 Actual Procedures p Laparoscopic Cholecystectomy(Not Applicable) - Cachorro Lacey MD Ordered Studies 04/27/19 11:55 CT abd pelvis IV con only Stat 04/28/19 14:00 [place] ERCP biliary ductal Routine Hospital Course (1) Acute gallstone pancreatitis: S/P laparascopic cholecystectomy and S/P ERCP and stone removal. Patient reports feeling much better than before. Patient treated post op with zosyn. Will stop antibitotics at discharge. (2) Obstructive jaundice: Improving as noted above. (3) Hypokalemia: IV replacement. Serial labs; will recommend f/u as outpatient (4) Hepatitis C: Necessary precautions (5) Hypertension: Treated with lisinopril (6) Hyperlipidemia: resume statin therapy (7) DVT prophylaxis: Lovenox subcu Total Time Total Time Spent Total Time Spent (In Minutes): 32 Total Time Includes: Examination of the Patient, Discharge Planning and Medi cation Reconciliation Discharge Plan Discharge Items [facility] Reason For Visit: ACUTE PANCREATITIS Discharge Diagnosis: Acute pancreatitis Discharge Goals: Decrease discomfort Activity: As commented below Activity Comment: tAKE IT EASY FOR 2 WEEKS, NO EXERTION, NO HEAVY LIFTING. Non-emergency contact: Primary Care Provider Call non-emergency contact if: you have any medication questions Follow-up/Referrals: Dariel RYAN [Primary Care Provider] - Diet: Regular Addtl Provider Instructions: Followup with PCP once released from assisted. Surgical discharge instructions: -no heavy lifting over 10 pounds for 2 weeks - no strenuous activity until cleared by surgeon - no submerging incisions underwater for 2 weeks (bathing, swimming, or hot tubs) - no driving for 1 week - You may shower, gently allow water to run over incisions and pat dry - remove steri strips in 7 days - May take Percocet every 4 hours as needed for moderate to severe pain - Follow-up with surgery office or your general practitioner in 2 weeks Prescriptions: New oxycodone-acetaminophen [Percocet] 5-325 mg Tablet 1 tab PO Q4H PRN (Reason: SEVERE PAIN) Qty: 12 RF: 0 Continued lisinopril 20 mg Tablet 20 mg PO HS RF: 0 aspirin 81 mg Tablet,Delayed Release (Dr/Ec) 81 mg PO HS RF: 0 magnesium hydroxide [Milk of Magnesia] 400 mg/5 mL Suspension 30 ml PO QPM PRN (Reason: Constipation) RF: 0 promethazine 25 mg/mL Solution 25 mg IM Q6H PRN (Reason: Unknown) RF: 0 mirtazapine 15 mg Tablet 15 mg PO HS RF: 0 ibuprofen 600 mg Tablet 600 mg PO TID RF: 0 lovastatin 20 mg Tablet 20 mg PO HS RF: 0 duloxetine 30 mg Capsule,Delayed Release(Dr/Ec) 30 mg PO HS RF: 0 omeprazole 20 mg Tablet,Delayed Release (Dr/Ec) 20 mg PO QAM RF: 0 Stand-Alone Forms: Call Back Authorization, [facility] Discharge Orders: Discharge Order (Routine); Ordered 05/01/19 Ordered By: Percy Baxter Admission Data Admit Date/Time: 04/27/19 13:37 Attending Provider: Percy Baxter Admit Provider: Gael Jacob Primary Care Provider: Dariel RYAN Other Providers: Gael Jacob ; Renuka Haskins ; Cachorro Lacey Service: Medical Other Interventions: Discharge Summary Assessment (RN) Last Done: 05/01/19 15:11 Pending Studies at Discharge: Yes (Gallbladder pathology) DC Date/Time DO NOT enter until pt leaves facility: 05/01/19 15:30
== END 2019-05-01 15:30 | DRG 417 ==
LOC: ED 10:09 → SUATTDRO 13:37 → 2N 13:37 → 3W 04-29 16:42